=== PATIENT | male | born 1955 | race Caucasian/White ===

== ENCOUNTER 2024-04-23 09:31 | Outpatient (AMB) | payer MEDICARE, SELFPAY ==
--- NOTE | 2024-04-23 09:35 | MHC.PC.OV ---
Vital Signs 04/23/24 09:38 Height 6 ft 2 in Weight 197 lb 2 oz BMI 25.3 BP 128/92 H Blood Pressure Location Lt brachial Position Sitting Pulse 61 Pulse Source Pulse Oximeter Pulse Oximetry (%) 98 Oxygen Delivery Method Room Air Intake Visit Reasons: establish care Financial Rep Required: No Accompanied by: Self / Same As Patient Allergies No Known Allergies [No Known Allergies*] Allergy (Verified 04/23/24 09:47) Medication List - Last Reconciled 04/23/24 by JOSELINE Minor No Known Home Meds Tobacco use date assessed: 04/23/24 Fall risk assessment: No Falls in past year Last assessed Fall Risk: 04/23/24 Dental Screening Dental Screen Date: 04/23/24 Did you have a dental visit in the last 12 months?: No Did you have a dental problem in the last 6 months where you did not have access to dental care?: No Was dental information given to patient?: No HPI establish care HPI Details Patient is a 68-year-old male presenting to establish care Previous PCP: Willy camejo, [address] [place] [address] drive Last visit: been in a while Last PE: same Specialist: orthopedics OBGYN:N/A Past medical history: HTN, Medications: thinks that he use to take lisinopril but cannot remember the dose Family HX: n/a Problem: Elevated BP: 150/96 left arm (recheck bp) walks 5 days week for almost 3 miles a week left knee arthritis: steroid x1,, decrease range of motion, referral to Dr. Matteo Trivedi ([facility]) at [address] [place] [address] Reports that he seems to urinates 2-3 times a night. reports beer 5 times a week, 10 to 12 beers in in setting. [facility] Medical History (Updated 04/27/24 @ 10:22 by JOSELINE Minor) HTN (hypertension) Social History Housing: House Patient Tobacco Use Status: Never used Tobacco e-Cigarette/Vaping Use: Never Used service: No Current occupational status: retired Current occupational exposures/hazards: No Cognitive needs: No Hearing needs: No Vision needs: No Questionnaire PHQ-9 Over the last 2 weeks, how often have you been bothered by any of the following problems? 1. Little interest or pleasure in doing things: not at all 2. Feeling down, depressed, or hopeless: not at all 3. Trouble falling or staying asleep, or sleeping too much: not at all 4. Feeling tired or having little energy: not at all 5. Poor appetite or overeating: not at all 6. Feeling bad about yourself - or that you are a failure or have let yourself or your family down: not at all 7. Trouble concentrating on things, such as reading the newspaper or watching television: not at all 8. Moving or speaking so slowly that other people could have noticed. Or the opposite - being so fidgety or restless that you have been moving around a lot more than usual: not at all 9. Thoughts that you would be better off or of hurting yourself in some way: not at all Total score: 0 Source: Developed by Drs. Jose Abdul, Belle Bloom, Jah Francis and colleagues, with an educational carlos from [employer]. Thrive Questionnaire Date Thrive assessed: 04/23/24 I am a: Patient What is your living situation today?: I have a steady place to live Within the past 12 months, did the food you bought not last and you didn't have the money to get more?: Never true Within the past 12 months, did you worry whether your food would run out before you got money to buy more?: Never true Do you have trouble paying for medicines?: No Do you have trouble getting transportation to medical appointments?: No Do you have trouble paying your heating and electricity bill?: No Do you have trouble taking care of your child, family member or friend?: No Do you have trouble with day-to-day activities such as bathing, preparing meals, shopping, managing finances, etc.?: No Are you currently unemployed and looking for a job?: No Are you interested in more education?: No Please select the resources that you would like help with: None Currently or been in a relationship where the following occur: I choose not to answer THRIVE Score: 0 AUDIT C Alcohol Use Questionnaire (AUDIT-C) 1. How often do you have a drink containing alcohol?: 4 or more times a week 2. How many drinks containing alcohol do you have on a typical day when you are drinking?: 5 or 6 3. How often do you have six or more drinks on one occasion?: Weekly Total Score: 9 Score Reviewed/Action Taken: Yes CORDELIA-7 AMB Questionnaire CORDELIA-7 Date CORDELIA - 7 assessed: 04/23/24 Feeling nervous, anxious, or on edge: 3 = Nearly every day Not being able to stop or control worryin = Not at all Worrying too much about different things: 0 = Not at all Trouble relaxin = Several days Being so restless that it is hard to sit still: 1 = Several days Becoming easily annoyed or irritable: 3 = Nearly every day Feeling afraid as if something awful might happen: 0 = Not at all Total CORDELIA-7 score (0-4 normal; 5-9 mild; 10-14 moderate; 15-21 severe): 8 Source: Developed by Drs. Jose Abdul, Belle Bloom, Jah Francis and colleagues, with an educational carlos from [employer]. CORDELIA-7 Assessment Billing CORDELIA-7 Assessment Tool: CORDELIA-7 Assessment 62703 Review of Systems Const Details: Denies chills, Denies fatigue, Denies fever(s), Denies headache(s) and Denies weakness HEENT Denies change in vision, Denies dizziness, Denies headache(s), Denies hearing loss, Denies nasal congestion, Denies sinus pain, Denies sinus pressure and Denies sore throat Card Denies chest pain, Denies lightheadedness, Denies dyspnea and Denies other (palpitations) Reports a history of high blood pressure Resp Denies cough, Denies dyspnea and Denies wheezing GI Denies abdominal pain, Denies melena, Denies hematochezia, Denies change in bowel habits, Denies dyspepsia and Denies nausea Denies hematuria and Denies dysuria Musc Denies abnormal gait, Denies myalgias, +arthralgias (decrease ROM, reports that he was told that he has arthritis), Denies numbness and Denies tingling Skin/Breast Denies rash, Denies unusual bruising and Denies wounds Neuro Denies abnormal gait, Denies dizziness, Denies headache(s), Denies memory loss, Denies numbness, Denies Sensory deficit (Neuro), Denies tingling and Denies weakness Psych Denies anxiety, Denies depression and Denies memory loss Endo Denies cold intolerance, Denies fatigue, Denies heat intolerance, Denies polydipsia and Denies polyuria Titus/Lymph Denies easy bleeding and Denies easy bruising Aller/Immun Denies wheezing Physical exam (Primary Care) Vital Signs: Last Vital Signs Pulse 61 04/23/24 09:38 BP 128/92 H 04/23/24 09:38 Pulse Ox 98 04/23/24 09:38 Oxygen Delivery Method Room Air 04/23/24 09:38 BMI result Body Mass Index 25.3 Tobacco/Smoking Status: Tobacco use Status Tobacco use date assessed 04/23/24 04/23/24 09:42 Patient Tobacco Use Status Never used Tobacco 04/23/24 09:42 e-Cigarette/Vaping Use Never Used 04/23/24 09:42 PHQ-9: PHQ-9 Score PHQ-9: Total score 0 04/23/24 10:06 Thrive Assessment: Date of Thrive Assessment Date Thrive assessed 04/23/24 04/23/24 09:42 Currently or been in a relationship where the following occur: I choose not to answer Const Other: General: no acute distress, well developed, alert and awake Nutritional Appearance: well nourished Orientation/consciousness: patient oriented x3 HENMT Head: Yes normocephalic and Yes atraumatic Ears: hearing grossly normal bilaterally and TM's normal bilaterally General nose exam: Normal external nose present and Normal nares present Mouth: Normal oral and palatal mucosa present and moist mucous membranes Eyes Pupils: Equal, round and reactive pupils present and Pupil accommodation reflex normal EOM: EOMs intact bilaterally Neck Neck: Yes normal visual inspection, Yes no lymphadenopathy and Yes trachea midline Thyroid: Thyroid normal Carotids: no bruits Chest Chest palpation & inspection: normal inspection of the chest Resp Effort & Inspection: normal respiratory effort Auscultation: clear to auscultation bilaterally Cardio Rate: regular rate Rhythm: regular rhythm Heart sounds: S1 normal heart sound present, S2 normal heart sound present, no gallops, no murmurs and no rubs GI Palpation (GI): No Abdominal aortic bruit present, Soft to palpation, nontender, No hepatosplenomegaly present and No Rebound tenderness present Auscultation: normal bowel sounds General: Yes no CVA tenderness Back/Spine/Pelvis Back: no CVA tenderness Cervical Spine: cervical ROM normal and No Cervical spine tenderness Thoracic/Lumbar Spine: No lumbar tenderness Right knee pain with walking, no tenderness with palpation, no edema or erythema noted and decreased ROM reports hx of arthritis Skin General: warm and dry. Normal skin color. Normal skin turgor Lesions: no lesions Wounds: no wounds Nails: normal Neuro General: patient oriented x3, gait normal Cranial nerves: Yes Equal, round and reactive pupils present Cognition (Neuro): normal cognition Gait exam (Neuro): Normal gait present Extrem General: Yes normal to inspection, No edema and No calf tenderness Psych Appearance: grossly normal Affect: normal affect Attitude: cooperative Thought process: Normal thought process present Coding Level of Care Code New Pt Level 4 (09135) Diagnoses Arthritis of left knee M17.12 Hypertension, unspecified type I10 Hypertension type: unspecified Alcohol dependence with unspecified alcohol-induced disorder F10.29 Substance use status: unspecified alcohol-induced disorder Additional Codes CORDELIA-7 Assessment Billing - CORDELIA-7 Assessment Tool: CORDELIA-7 Assessment 98105 ([id number]) Time Spent (min) 37 Assessment & Plan Assessment & Plan (1) Arthritis of left knee: Code(s): M17.12 - Unilateral primary osteoarthritis, left knee Category: Medical Plan: The patient reports left knee pain and decreased ROM, reports that he has been connected with Orthopedics (Dr. Matteo Wang) at [facility]. He was given 1 steroid injection so far. Reports recommendation for surgery but needs a PCP in order proceed. Referral placed (2) HTN (hypertension): Code(s): I10 - Essential (primary) hypertension Category: Medical Qualifiers: Hypertension type: unspecified Qualified Code(s): I10 - Essential (primary) hypertension Plan: Patient reports a history of hypertension. Reports that he thinks that he used to take lisinopril but does not remember the dose Rechecked blood pressure 150/96, will start the patient on Lisinopril 5 mg daily The patient to return in 2 weeks for blood pressure check and medication adjustment (3) Alcohol dependence: Code(s): F10.20 - Alcohol dependence, uncomplicated Category: Medical Qualifiers: Substance use status: unspecified alcohol-induced disorder Qualified Code(s): F10.29 - Alcohol dependence with unspecified alcohol-induced disorder Plan: Discussed with patient about his high amount of alcohol consumption. The reports that it is just beers and it is not as bad as hard liquor. Encourage cessation or cutting down the amount drinking in one sitting Orders: Orders Complete Blood Count Auto Diff 04/24/24 Z00.00 - Encounter for general adult medical examination without abnormal findings Lipid Panel 04/24/24 Z00.00 - Encounter for general adult medical examination without abnormal findings TSH reflex Free T4 04/24/24 Z00.00 - Encounter for general adult medical examination without abnormal findings Comprehensive [place]. Panel Fast 04/24/24 Z00.00 - Encounter for general adult medical examination without abnormal findings Vitamin D 25-OH Total 04/24/24 Z00. - Encounter for general adult medical examination without abnormal findings UA CC w/rflx Micro + Cult 04/24/24 Z00.00 - Encounter for general adult medical examination without abnormal findings Glucose Fasting 04/24/24 Z00.00 - Encounter for general adult medical examination without abnormal findings PSA,Total (Free>4and<10) 04/24/24 Z00.00 - Encounter for general adult medical examination without abnormal findings ECG 12 lead EKG 04/24/24 M17.12 - Unilateral primary osteoarthritis, left knee Referrals Orthopedics Referral M17.12 - Unilateral primary osteoarthritis, left knee Medications: New lisinopril 5 mg PO DAILY 30 tabs 0RF I10 - Essential (primary) hypertension
[2024-04-23 09:38] VITALS: BP 128/92; PULSE 61; O2SAT 98; BMI 25.3
--- OUTSIDE RECORDS SUMMARY | 2024-04-23 10:48 | XMS_ITS | Encounter Summary ---
Author Organization [facility] Address [address] [place] [address] Care Team Providers Care Medicaid Collection Specialist Name Role Phone Unavailable Primary Care Provider Unavailabl e Reason for Visit * Reason Onset Date Comments Referral 04/02/2024 Encounter Details Date Type Department Care Team (Late st Contact Info) Description 04/02/2024 Telephone Orthopedic Surgery - [place] [address] [facility] [address] [place] [address] Matteo Trivedi MD [address] [facility] [address] [address] Referral Social History Tobacco Use Types Packs/Day Years Used Date Smoking Tobacco: Never Assessed Sex and Gender Information Value Date Recorded Sex Assigned at Not on file Legal Sex Male 10:30 AM EST Gender Identity Not on file Sexual Orientation Not on file documented as of this encounter Progress Notes * Ping Tobar - 04/02/2024 12:[address] Trivedi, patient needs to get a primary care doctor before booking this appointment. Pt wifestated pt has not been seen by a PCP since 2019. I relayed this information to the pt's and stated they could bring in those records but the pt would need to find a new PCP before being seen by Dr. Trivedi. Pt was in agreement. * Ping Tobar - 04/02/2024 10:30 AM EST Will do. Just called pt and lvm for last office note. * Ping Tobar - 04/02/2024 10:[address] EST [address] Trivedi, Patient is being referred for unilateral primary osteoarthritis, left knee by Dr. Rivas. Please review office notes and let me know if I can book appt with you. Please advise. Thank you. documented in this encounter Plan of Treatment Not on file documented as of this encounter Visit Diagnoses Not on filedocumented in this encounter
--- OUTSIDE RECORDS SUMMARY | 2024-04-23 10:48 | XMS_ITS | Clinical Summary ---
Author Organization [facility] Address [address] [place] [address] Phone Care Team Providers Care Bolt Maker Name Role Phone Unavailable Primary Care Provider Unavailabl e Encounters Date Type Department Care Team Description 04/02/2024 Telephone Orthopedic Surgery - [place] [address] [facility] [address] [place] [address] Matteo Trivedi MD Referral 03/20/2024 10:33 AM EST - 03/20/2024 11:59 PM EST Hospital Encounter [facility] Ortho Xray [address] [place] [address] Pain Discharge Disposition: Home or Self Care from Last 3 Months Social History Tobacco Use Types Packs/Day Years Used Date Smoking Tobacco: Never Assessed Sex and Gender Information Value Date Recorded Sex Assigned at Not on file Legal Sex Male 10:30 AM EST Gender Identity Not on file Sexual Orientation Not on file Plan of Treatment Health Maintenance Due Date Last Done Comments DTaP,Tdap,and Td Vaccines (1 - Tdap) 1973 Pneumococcal Vaccine: 50+ Ye ars (1 of 1 - PCV) 2004 Zoster Vaccines (1 of 2) 2004 COVID-19 Vaccine ( - 2023-2 5 season) 2023 Influenza Vaccine (#1) 2023 Abdominal Aortic Aneurysm (A AA) Screen 03/20/2024 Cholesterol Screening (Lipid Panel) 03/20/2024 Colorectal Cancer Screening: Colonoscopy 03/20/2024 Depression Screening 03/20/2024 Falls Risk Assessment 03/20/2024 Hepatitis C Screening 03/20/2024 Social Influencers of Health Screening 03/20/2024 RSV Immunization Patients 60 + Years Old (1 - 1-dose 75+ series) 2029 HIB Vaccines Aged Out No longer eligi ble based on patient's age to complete this topic HPV Vaccines Aged Out No longer eligi ble based on patient's age to complete this topic Hepatitis A Vaccines Aged Out No long er eligible based on patient's age to complete this topic Hepatitis B Vaccines Aged Out No long er eligible based on patient's age to complete this topic IPV Vaccines Aged Out No longer eligi ble based on patient's age to complete this topic MMR Vaccines Aged Out No longer eligi ble based on patient's age to complete this topic Meningococcal ACWY Vaccine Aged Out N o longer eligible based on patient's age to complete this topic Meningococcal B Vacine Aged Out No lo nger eligible based on patient's age to complete this topic RSV Immunization Patients Un logan 20 months Aged Out No longer eligible b ased on patient's age to complete this topic Varicella Vaccines Aged Out No longer eligible based on patient's age to complete this topic Procedures Procedure Name Priority Date/Time Associated Diagnosis Comments XR KNEE 1-2 VIEWS BILAT Routine 03/20/2024 10:41 AM EST Pain from Last 3 Months Results * XR Knee 1-2 Views bilat (03/20/2024 10:41 AM EST) Narrative RIS PACS/VR - 03/20/2024 10:41 AM EST This order has been auto-finalized and does not contain a result. us Jj Nelson MD IMG XR PROCEDURES Final Result RIS PACS/VR from Last 3 Months
== END 2024-04-23 10:17 | disposition home or self-care (01) ==
DX: M17.12 Unilateral primary osteoarthritis, left knee (principal); I10 Essential (primary) hypertension; F10.29 Alcohol dependence with unspecified alcohol-induced disorder

== ENCOUNTER → 2024-04-23 09:31 | Outpatient (BNVA) | payer MEDICARE, SELFPAY | DX: M17.12 Unilateral primary osteoarthritis, left knee (principal); I10 Essential (primary) hypertension; F10.29 Alcohol dependence with unspecified alcohol-induced disorder | CPT/HCPCS: 96127; 99202 ==

== ENCOUNTER 2024-04-24 06:35 | Outpatient (REF) | payer MEDICARE, SELFPAY ==
--- NOTE | 2024-04-24 06:53 | ECG_ITS ---
Test Reason : M17.12 Blood Pressure : */* mmHG Vent. Rate : 91 BPM Atrial Rate : 91 BPM P-R Int : 142 ms QRS Dur : 90 ms QT Int : 380 ms P-R-T Axes : 85 -23 54 degrees QTcB Int : 467 ms Normal sinus rhythm Right atrial enlargement Cannot rule out Inferior infarct , age undetermined Abnormal ECG When compared with ECG of 22-Jun-2017 10:16, Minimal criteria for Inferior infarct are now Present Non-specific change in ST segment in Inferior leads Referred By: Jason Mcfarlane Electronically Signed By: ELLEN GUERRERO MD
[2024-04-24 06:55] LABS: MANUAL DIFF FLAG NO
[2024-04-24 07:27] LABS: Appearance Urine Clear; Color Urine Yellow; Glucose Urine UA Negative (Negative); Leukocyte Esterase Urine Negative (Negative); Nitrite Urine Negative (Negative); PH 5.5 (5.0-9.0); Specific Gravity - Urine 1.015 (1.005-1.025); Urine Blood Negative (Negative); Urine Ketones Negative (Negative); Urine Protein Negative (Neg-Trace)
[2024-04-24 07:27] LABS: Basophils Percent Auto 0.4 % (0-2); Eosinophils Absolute Auto 0.1 X10*3/uL (0.0-0.4); Eosinophils Percent Auto 2.5 % (0-4); Hematocrit 46.3 % (42.0-52.0); Hemoglobin 16.4 g/dl (14.0-18.0); Imm Gran Abs Auto 0.02 X10*3/uL (0.00-0.03); Imm Gran Pct Auto 0.4 % (0.0-0.4); Lymphocytes Absolute Auto 2.1 X10*3/uL (1.2-4.9); Lymphocytes Percent Auto 40.7 % (20-40); Mean Corpuscular HGB Conc 35.4 g/dl (31.0-36.0); Mean Corpuscular Hemoglobin 32.1 pg (27.0-33.0); Mean Corpuscular Volume 90.6 fL (80.0-98.0); Monocytes Absolute Auto 0.5 X10*3/uL (0.1-1.2); Monocytes Percent Auto 10.4 % (2-11); Neutrophils Absolute Auto 2.4 x10*3/uL (2.0-8.3); Neutrophils Percent Auto 45.6 % (45-73); Platelet Count 194 X10*3/uL (160-400); Red Blood Count 5.11 X10*6/uL (4.60-5.80); Red Cell Distribution Width 12.2 % (11.0-16.0); White Blood Count 5.2 X10*3/uL (4.8-10.8)
[2024-04-24 08:07] LABS: Alanine Aminotransferase 31 U/L (0-40); Albumin Level 4.3 g/dL (3.5-5.0); Alkaline Phosphatase 70 U/L (39-117); Anion Gap 13 (12-20); Aspartate Amino Transferase 30 U/L (5-37); Bilirubin Total 1.5 mg/dL (0.0-1.0); Blood Urea Nitrogen 10 mg/dL (9-16); Calcium 9.3 mg/dL (8.4-10.2); Carbon Dioxide 25 mmol/L (22-29); Chloride 105 mmol/L (96-108); Cholesterol 221 mg/dL (<200); Estimated Glomerular Filt Rate > 60; Glucose Fasting 110 mg/dL (60-99); HDL Cholesterol 57 mg/dL (>40); LDL Cholesterol Calculated 146 mg/dL (<100); Potassium 4.3 mmol/L (3.3-5.1); Sodium 139 mmol/L (135-145); Total Protein 7.8 g/dL (6.5-8.0); Triglycerides 92 mg/dL (<150)
[2024-04-24 08:28] LABS: TSH reflex Free T4 2.91 uIU/mL (0.32-4.0); Vitamin D 25-OH Total 31.6 ng/mL (>30)
== END 2024-04-24 06:36 | disposition home or self-care (01) ==
LOC: HO.LAB 06:35
DX: Z00.00 Encounter for general adult medical examination without abnormal findings (principal); M17.12 Unilateral primary osteoarthritis, left knee; Z12.5 Encounter for screening for malignant neoplasm of prostate; Z13.6 Encounter for screening for cardiovascular disorders
CPT/HCPCS: 36415; 80053; 80061; 81003; 82306; 84153; 84443; 85025; 93005

== ENCOUNTER → 2024-04-24 06:53 | Outpatient (BNV) | payer MEDICARE, SELFPAY | PROVIDERS: Visit Provider Internal Medicine Cardiovascular Disease | DX: I51.7 Cardiomegaly (principal) | CPT/HCPCS: 93010 ==

== ENCOUNTER 2024-05-07 09:29 | Outpatient (AMB) | payer MEDICARE, SELFPAY ==
[2024-05-07 09:31] VITALS: BP 152/92; PULSE 65; TEMP 37.2; O2SAT 99; BMI 25.5
--- NOTE | 2024-05-07 09:31 | MHC.PC.OV ---
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 Required: No Accompanied by: Self / Same As Patient Allergies No Known Allergies [No Known Allergies*] Allergy (Verified 05/07/24 09:47) Medication List - Last Reconciled 05/07/24 by JOSELINE Minor lisinopril 5 mg PO DAILY Tobacco use date assessed: 05/07/24 Fall risk assessment: No Falls in past year Last assessed Fall Risk: 05/07/24 Dental Screening Dental Screen Date: 05/07/24 Did you have a dental visit in the last 12 months?: No Did you have a dental problem in the last 6 months where you did not have access to dental care?: No HPI pe HPI Details Patient is a 68-year-old male presenting for annual physical Dentist: not in a while-encourage patient to make an appointment Eye: not in a while-same as above Snellen: Right: Left: Corrected vision: STI screening: Colonoscopy:Reports that her insurance did not cover it and it was cancel Pap Smer:n/a PHQ-9: Flu: not this season COVID:x2 Tdap: up to date Diet: Regular Exercise:not currently due to left knee pain Elevated BP: 150/96 left arm (recheck bp) walks 5 days week for almost 3 miles a week left knee arthritis: steroid x1,, decrease range of motion, referral to Dr. Matteo Trivedi ([facility]) at [address] [place] [address], next sunday at 930-will be his first visit Reports urinates 2-3 times a night. reports beer 5 times a week, 10 to 12 beers in one setting. Discussed with patient about cutting down on the amount of beers he is drinking Lightheaded when standing up from bending: will do an echocardiogram 148/82 left arm RIGHT UPPER BACK: MOLE RIGHT BRIDGE OF NOSE MOLE-DERMATOLOGY REFERRAL [facility] Medical History (Updated 05/18/24 @ 15:35 by JOSELINE Minor) HTN (hypertension) Social History Housing: House Patient Tobacco Use Status: Never used Tobacco e-Cigarette/Vaping Use: Never Used Substance Use Type: Marijuana service: No Current occupational status: retired Current occupational exposures/hazards: No Cognitive needs: No Hearing needs: No Vision needs: No Questionnaire PHQ-9 Over the last 2 weeks, how often have you been bothered by any of the following problems? 1. Little interest or pleasure in doing things: not at all 2. Feeling down, depressed, or hopeless: not at all 3. Trouble falling or staying asleep, or sleeping too much: not at all 4. Feeling tired or having little energy: not at all 5. Poor appetite or overeating: not at all 6. Feeling bad about yourself - or that you are a failure or have let yourself or your family down: not at all 7. Trouble concentrating on things, such as reading the newspaper or watching television: not at all 8. Moving or speaking so slowly that other people could have noticed. Or the opposite - being so fidgety or restless that you have been moving around a lot more than usual: not at all 9. Thoughts that you would be better off or of hurting yourself in some way: not at all Total score: 0 Depression Screening Interpretation: Negative Depression Screening Done: Yes Source: Developed by Drs. Jose Abdul, Belle Bloom, Jah Francis and colleagues, with an educational carlos from [employer]. Thrive Questionnaire Date Thrive assessed: 05/07/24 I am a: Patient What is your living situation today?: I have a steady place to live Within the past 12 months, did the food you bought not last and you didn't have the money to get more?: Never true Within the past 12 months, did you worry whether your food would run out before you got money to buy more?: Never true Do you have trouble paying for medicines?: No Do you have trouble getting transportation to medical appointments?: No Do you have trouble paying your heating and electricity bill?: No Do you have trouble taking care of your child, family member or friend?: No Do you have trouble with day-to-day activities such as bathing, preparing meals, shopping, managing finances, etc.?: No Are you currently unemployed and looking for a job?: No Are you interested in more education?: No Please select the resources that you would like help with: None Currently or been in a relationship where the following occur: I choose not to answer THRIVE Score: 0 AUDIT C Alcohol Use Questionnaire (AUDIT-C) 1. How often do you have a drink containing alcohol?: 4 or more times a week 2. How many drinks containing alcohol do you have on a typical day when you are drinking?: 5 or 6 3. How often do you have six or more drinks on one occasion?: Weekly Total Score: 9 Score Reviewed/Action Taken: Yes CORDELIA-7 AMB Questionnaire CORDELIA-7 Date CORDELIA - 7 assessed: 04/23/24 Feeling nervous, anxious, or on edge: 2 = More than half the days Not being able to stop or control worryin = Not at all Worrying too much about different things: 0 = Not at all Trouble relaxin = Several days Being so restless that it is hard to sit still: 1 = Several days Becoming easily annoyed or irritable: 3 = Nearly every day Feeling afraid as if something awful might happen: 0 = Not at all Total CORDELIA-7 score (0-4 normal; 5-9 mild; 10-14 moderate; 15-21 severe): 7 Source: Developed by Drs. Jose Abdul, Belle Bloom, Jah Francis and colleagues, with an educational carlos from [employer]. Review of Systems Const Denies headache(s) Eyes Denies loss of vision ENT Denies vertigo, Denies dizziness, Denies headache(s) and Denies sore throat Card Denies chest pain, Denies leg edema and Reports lightheadedness (when standing up from a bending position) Resp Denies cough, Denies hemoptysis and Denies wheezing GI Denies abdominal pain, Denies melena, Denies constipation, Denies diarrhea and Denies vomiting Denies dysuria, Denies urinary frequency and Denies urinary urgency Musc Reports arthralgias (left knee pain), Denies joint swelling, Denies numbness and Denies tingling Neuro Denies Abnormal speech present, Denies behavioral changes, Denies vertigo, Denies dizziness, Denies headache(s), Denies loss of vision, Denies memory loss, Denies numbness and Denies tingling Psych Denies anxiety, Denies behavioral changes, Denies depression, Denies memory loss and Denies panic attacks Titus/Lymph Denies easy bleeding and Denies easy bruising Aller/Immun Denies wheezing Physical exam (Primary Care) Vital Signs: Last Vital Signs Temp 98.9 F 05/07/24 09:31 Pulse 65 05/07/24 09:31 BP 152/92 H 05/07/24 09:31 Pulse Ox 99 05/07/24 09:31 Oxygen Delivery Method Room Air 05/07/24 09:31 BMI result Body Mass Index 25.5 Tobacco/Smoking Status: Tobacco use Status Tobacco use date assessed 05/07/24 05/07/24 09:33 Patient Tobacco Use Status Never used Tobacco 05/07/24 09:38 e-Cigarette/Vaping Use Never Used 05/07/24 09:38 PHQ-9: PHQ-9 Score PHQ-9: Total score 0 05/07/24 09:45 Depression Screening Interpretation: Negative Thrive Assessment: Date of Thrive Assessment Date Thrive assessed 05/07/24 05/07/24 09:42 Currently or been in a relationship where the following occur: I choose not to answer Const General: healthy appearing, no acute distress, alert and awake Nutritional Appearance: well nourished Orientation/consciousness: oriented to person, oriented to place and oriented to time HENMT Ears: TM's normal bilaterally General nose exam: Normal nasal mucous membranes and turbinates present Eyes Conjunctivae: conjunctivae normal Sclerae: sclerae normal Pupils: Equal, round and reactive pupils present Neck Neck: Yes no lymphadenopathy and Yes no JVD Thyroid: Thyroid normal Carotids: no bruits Resp Effort & Inspection: normal respiratory effort and not tachypneic Auscultation: no crackles, no rales, no rhonchi and no wheezes Cardio Rate: regular rate Rhythm: regular rhythm Heart sounds: no murmurs and normal S1 and S2 GI Palpation (GI): Soft to palpation, nontender, no hepatomegaly and no splenomegaly Auscultation: normal bowel sounds Skin General skin exam: no rashes or lesions noted and dry skin Neuro General: oriented to person, oriented to place and oriented to time Cranial nerves: Yes Equal, round and reactive pupils present Speech: No Abnormal speech present Gait exam (Neuro): Normal gait present Motor exam (neuro): no tremor noted Extrem Right upper extremity: full ROM Left upper extremity: full ROM Right lower extremity: full ROM; no edema Left lower extremity: full ROM and knee Details: abnormal ROM; no tenderness and no swelling; no edema Psych Mental Status: mental status grossly normal Speech and movement: Normal speech and movement present Affect: normal affect Attitude: cooperative Thought process: Normal thought process present Results Reviewed Results Reviewed: Laboratory Tests 04/24/24 04/24/24 06:50 06:54 WBC 5.2 RBC 5.11 Hgb 16.4 Hct 46.3 Plt Count 194 Sodium 139 Potassium 4.3 Chloride 105 Carbon Dioxide 25 BUN 10 Creatinine 1.03 Estimated GFR > 60 Fasting Glucose 110 H Total Bilirubin 1.5 H AST 30 ALT 31 Alkaline Phosphatase 70 Triglycerides 92 Cholesterol 221 H LDL Cholesterol, Calc 146 H HDL Cholesterol 57 Total PSA 0.80 25-OH Vitamin D Total 31.6 TSH 2.91 Urine Color Yellow Urine Appearance Clear Urine pH 5.5 Ur Specific Gustine 1.015 Urine Protein Negative Urine Glucose (UA) Negative Urine Ketones Negative Urine Blood Negative Urine Nitrite Negative Ur Leukocyte Esterase Negative Coding Level of Care Code Est Pt Prev Care >65y([id number]) Diagnoses Annual physical exam Z00.00 Pure hypercholesterolemia with target low density lipoprotein (LDL) cholesterol less than 130 mg/dL E78.00 Alcohol dependence with unspecified alcohol-induced disorder F10.29 Substance use status: unspecified alcohol-induced disorder Hypertension, unspecified type I10 Hypertension type: unspecified Arthritis of left knee M17.12 Right atrial enlargement I51.7 Time Spent (min) 39 Assessment & Plan Assessment & Plan (1) Annual physical exam: Code(s): Z00.00 - Encounter for general adult medical examination without abnormal findings Category: Medical Plan: Preventative guidelines and recent labs reviewed with the patient. The patient reports that he was supposed to have a colonoscopy but his insurance did not cover this and it was not done. The patient is not sure about getting it right now. Will revisit this in the future. (2) Pure hypercholesterolemia with target low density lipoprotein (LDL) cholesterol less than 130 mg/dL: Code(s): E78.00 - Pure hypercholesterolemia, unspecified Category: Medical Plan: T-chol 221, LDL 146 Reinforced low cholesterol diet and activity as tolerated Start atorvastatin 10 mg at bedtime will recheck lipid panel in 3 months (3) Alcohol dependence: Code(s): F10.20 - Alcohol dependence, uncomplicated Category: Medical Qualifiers: Substance use status: unspecified alcohol-induced disorder Qualified Code(s): F10.29 - Alcohol dependence with unspecified alcohol-induced disorder Plan: Encouraged cutting down on the amount of alcohol beverages consuming (4) HTN (hypertension): Code(s): I10 - Essential (primary) hypertension Category: Medical Qualifiers: Hypertension type: unspecified Qualified Code(s): I10 - Essential (primary) hypertension Plan: Reinforced low salt diet Increased lisinopril to 10 mg daily EKG showed sinus rhythm with enlargement of right atrial. Will order and echocardiogram (5) Arthritis of left knee: Code(s): M17.12 - Unilateral primary osteoarthritis, left knee Category: Medical Plan: The patient reports left knee pain and decreased ROM, reports that he has been connected with Orthopedics (Dr. Matteo Wang) at [facility]. He was given 1 steroid injection so far. Reports recommendation for surgery but needs a PCP in order proceed. Referral placed on previous visit. Follow up with orthopedics as scheduled (6) Right atrial enlargement: Code(s): I51.7 - Cardiomegaly Category: Medical Plan: echcardiogram ordered Plan The patient to follow up in 3 months Orders: Orders Lipid Panel 3 Months E78.00 - Pure hypercholesterolemia, unspecified, F10.29 - Alcohol dependence with unspecified alcohol-induced disorder, I10 - Essential (primary) hypertension UA CC w/rflx Micro + Cult 3 Months E78.00 - Pure hypercholesterolemia, unspecified, F10.29 - Alcohol dependence with unspecified alcohol-induced disorder, I10 - Essential (primary) hypertension TSH reflex Free T4 3 Months E78.00 - Pure hypercholesterolemia, unspecified, F10.29 - Alcohol dependence with unspecified alcohol-induced disorder, I10 - Essential (primary) hypertension Comprehensive [place]. Panel Fast 3 Months E78.00 - Pure hypercholesterolemia, unspecified, F10.29 - Alcohol dependence with unspecified alcohol-induced disorder, I10 - Essential (primary) hypertension Complete Blood Count Auto Diff 3 Months E78.00 - Pure hypercholesterolemia, unspecified, F10.29 - Alcohol dependence with unspecified alcohol-induced disorder, I10 - Essential (primary) hypertension Glucose Fasting 3 Months E78.00 - Pure hypercholesterolemia, unspecified, F10.29 - Alcohol dependence with unspecified alcohol-induced disorder, I10 - Essential (primary) hypertension Hemoglobin A1c 3 Months E78.00 - Pure hypercholesterolemia, unspecified, F10.29 - Alcohol dependence with unspecified alcohol-induced disorder, I10 - Essential (primary) hypertension Medications: New atorvastatin 10 mg PO BEDTIME 90 tabs 1RF 90 days E78.00 - Pure hypercholesterolemia, unspecified lisinopril 10 mg PO DAILY 30 tabs 3RF I10 - Essential (primary) hypertension Discontinued lisinopril Discontinued Reason: Duplicate 5 mg PO DAILY 30 tabs 0RF I10 - Essential (primary) hypertension
== END 2024-05-07 10:22 | disposition home or self-care (01) ==
LOC: HO.HMCH 09:30
DX: Z00.00 Encounter for general adult medical examination without abnormal findings (principal); E78.00 Pure hypercholesterolemia, unspecified; F10.29 Alcohol dependence with unspecified alcohol-induced disorder; I10 Essential (primary) hypertension; M17.12 Unilateral primary osteoarthritis, left knee; I51.7 Cardiomegaly

== ENCOUNTER → 2024-05-07 09:29 | Outpatient (BNVA) | payer MEDICARE, SELFPAY | DX: Z00.00 Encounter for general adult medical examination without abnormal findings (principal); E78.00 Pure hypercholesterolemia, unspecified; F10.29 Alcohol dependence with unspecified alcohol-induced disorder; I10 Essential (primary) hypertension; M17.12 Unilateral primary osteoarthritis, left knee; I51.7 Cardiomegaly | CPT/HCPCS: 99397 ==

== ENCOUNTER 2024-05-27 10:53 | Outpatient (AMB) | payer MEDICARE, SELFPAY ==
[2024-05-27 10:59] VITALS: BP 152/84; PULSE 78; RESP 20; TEMP 36.3; O2SAT 98; BMI 25.8
--- NOTE | 2024-05-27 10:59 | A.OFFPC_ITS ---
Vital Signs 05/27/24 10:59 05/27/24 11:42 Height 6 ft 2 in Weight 200 lb 9.6 oz BMI 25.8 BP 152/84 H 144/80 H Blood Pressure Location Lt brachial Lt brachial Position Sitting Respiration 20 Pulse 78 Pulse Source Pulse Oximeter Temp 97.3 F Temp Source Oral Pulse Oximetry (%) 98 Oxygen Delivery Method Room Air Intake Visit Reasons: Pre-op for left knee replacement Intake Note: Patient is here for a Pre-op for Lt knee replacement scheduled with Dr. Matteo Daniels at [facility] in [place], [place] on 07/07/2024. Cost Estimator Required: No Accompanied by: Self / Same As Patient Allergies No Known Allergies [No Known Allergies*] Allergy (Verified 05/27/24 11:30) Medication List - Last Reconciled 05/27/24 by JOSELINE Minor atorvastatin 10 mg PO BEDTIME 90 days lisinopril 10 mg PO DAILY Tobacco use date assessed: 05/27/24 Fall risk assessment: No Falls in past year Last assessed Fall Risk: 05/27/24 Dental Screening Dental Screen Date: 05/27/24 Did you have a dental visit in the last 12 months?: No Did you have a dental problem in the last 6 months where you did not have access to dental care?: No Was dental information given to patient?: No HPI Pre-op for left knee replacement HPI Details The patient is a 68-year-old male who was presenting for preop clearance for left knee replacement Surgery: Left knee replacement. The patient has a history of osteoarthritis of the left knee for which he received steroid injection x1. The patient continued to have decreased range of motion and pain. Date: 07/07/2024 Surgery/location: Dr. Matteo Trivedi at [facility] Anesthesia: General. Patient denies any history of issues with anesthesia The patient denies any history of perioperative hypothermia or blood clotting disorder. The patient is not on any anticoagulation or disease modifying drugs. Medical history significant for hypertension, alcohol dependence, hypercholesterolemia. The patient had blood work done on 04/24/2024. Total cholesterol slightly elevated at 221 and LDL elevated at 146. Patient was started on atorvastatin 10 mg at bedtime. Patient had an EKG done on 04/24/2024 that showed atrial enlargement. The patient was referred to Cardiology. Per patient, his legal activity adjudicator reports that he is not concerned about his surgery; he is more concerned about his rehabilitation that will put added stress on his heart. The patient has an echocardiogram scheduled for 06/05/2024. Per patient, the legal activity adjudicator we will make a final decision after his echo. Patient also has an appointment with his dentist as part of the request from his surgeon. HTN: The patient was started on lisinopril 10 mg for elevated blood pressure. Patient reports that when he went to his legal activity adjudicator he did not drink any coffee. His initial blood pressure was slightly elevated and after the legal activity adjudicator repeated his blood pressure it was normal with a systolic in the 120s. Blood pressure in office is slightly elevated today, the patient admitted to drinking 2 small cups of coffee this morning prior to appointment. Discussed with the patient about cutting down on his coffee intake. Reinforced low-sodium diet and adequate fluid hydration. The patient had reported episodes of lightheadedness after bending down and standing up on previous visit. Poor fluid hydration was suspected due to the patient own admission of not drinking enough fluids, but drinking a lot of coffee. Patient had increase his fluid intake since his last visit. He verbalizes a decreased in the feeling of lightheadedness on the days that he drank more fluids. The patient denies shortness of breath, chest pain, heart palpitation or dizziness Denies abdominal pain or change in bowel habits Discussed with the patient that his previous labs are not concerning, but he should find out from his surgeon if he wants more labs closer to his surgery date. The patient will get this information and contact the office with this. [facility] Medical History (Updated 05/31/24 @ 20:57 by JOSELINE Minor) HTN (hypertension) Surgical History Hx of hernia repair Family History Mother Alzheimer dementia Father Heart attack Daughter No problems noted. Daughter No problems noted. Social History Housing: House Patient Tobacco Use Status: Never used Tobacco e-Cigarette/Vaping Use: Never Used Substance Use Type: Marijuana service: No Current occupational status: retired Current occupational exposures/hazards: No Cognitive needs: No Hearing needs: No Vision needs: No Questionnaire PHQ-9 Over the last 2 weeks, how often have you been bothered by any of the following problems? 1. Little interest or pleasure in doing things: not at all 2. Feeling down, depressed, or hopeless: not at all 3. Trouble falling or staying asleep, or sleeping too much: not at all 4. Feeling tired or having little energy: not at all 5. Poor appetite or overeating: not at all 6. Feeling bad about yourself - or that you are a failure or have let yourself or your family down: not at all 7. Trouble concentrating on things, such as reading the newspaper or watching television: not at all 8. Moving or speaking so slowly that other people could have noticed. Or the opposite - being so fidgety or restless that you have been moving around a lot more than usual: not at all 9. Thoughts that you would be better off or of hurting yourself in some way: not at all Total score: 0 Depression Screening Interpretation: Negative Depression Screening Done: Yes Source: Developed by Drs. Jose Abdul, Belle Bloom, Jah Francis and colleagues, with an educational carlos from [employer]. Thrive Questionnaire Date Thrive assessed: 05/27/24 I am a: Patient What is your living situation today?: I have a steady place to live Within the past 12 months, did the food you bought not last and you didn't have the money to get more?: Never true Within the past 12 months, did you worry whether your food would run out before you got money to buy more?: Never true Do you have trouble paying for medicines?: No Do you have trouble getting transportation to medical appointments?: No Do you have trouble paying your heating and electricity bill?: No Do you have trouble taking care of your child, family member or friend?: No Do you have trouble with day-to-day activities such as bathing, preparing meals, shopping, managing finances, etc.?: No Are you currently unemployed and looking for a job?: No Are you interested in more education?: No Please select the resources that you would like help with: None Currently or been in a relationship where the following occur: No concerns reported THRIVE Score: 0 AUDIT C Alcohol Use Questionnaire (AUDIT-C) 1. How often do you have a drink containing alcohol?: 4 or more times a week 2. How many drinks containing alcohol do you have on a typical day when you are drinking?: 5 or 6 3. How often do you have six or more drinks on one occasion?: Weekly Total Score: 9 Score Reviewed/Action Taken: Yes CORDELIA-7 AMB Questionnaire CORDELIA-7 Date CORDELIA - 7 assessed: 05/27/24 Feeling nervous, anxious, or on edge: 1 = Several days Not being able to stop or control worryin = Not at all Worrying too much about different things: 0 = Not at all Trouble relaxin = Not at all Being so restless that it is hard to sit still: 0 = Not at all Becoming easily annoyed or irritable: 0 = Not at all Feeling afraid as if something awful might happen: 0 = Not at all Total CORDELIA-7 score (0-4 normal; 5-9 mild; 10-14 moderate; 15-21 severe): 1 Source: Developed by Drs. Jose Abdul, Belle Bloom, Jah Francis and colleagues, with an educational carlos from [employer]. Review of Systems Const Denies headache(s) Eyes Denies loss of vision ENT Denies vertigo, Denies dizziness, Denies headache(s) and Denies sore throat Card Denies chest pain, Denies leg edema and Denies lightheadedness Resp Denies cough, Denies hemoptysis and Denies wheezing GI Denies abdominal pain, Denies melena, Denies constipation, Denies diarrhea and Denies vomiting Denies dysuria, Denies urinary frequency and Denies urinary urgency Musc Reports arthralgias (Left knee), Denies joint swelling, Denies numbness and Denies tingling Neuro Denies Abnormal speech present, Denies behavioral changes, Denies vertigo, Denies dizziness, Denies headache(s), Denies loss of vision, Denies memory loss, Denies numbness and Denies tingling Psych Denies anxiety, Denies behavioral changes, Denies depression, Denies memory loss and Denies panic attacks Titus/Lymph Denies easy bleeding and Denies easy bruising Aller/Immun Denies wheezing Physical exam (Primary Care) Vital Signs: Last Vital Signs Temp 97.3 F 05/27/24 10:59 Pulse 78 05/27/24 10:59 Resp 20 05/27/24 10:59 BP 144/80 H 05/27/24 11:42 Pulse Ox 98 05/27/24 10:59 Oxygen Delivery Method Room Air 05/27/24 10:59 BMI result Body Mass Index 25.8 Tobacco/Smoking Status: Tobacco use Status Tobacco use date assessed 05/27/24 05/27/24 11:17 Patient Tobacco Use Status Never used Tobacco 05/27/24 11:17 e-Cigarette/Vaping Use Never Used 05/27/24 11:17 PHQ-9: PHQ-9 Score PHQ-9: Total score 0 05/31/24 17:27 Depression Screening Interpretation: Negative Thrive Assessment: Date of Thrive Assessment Date Thrive assessed 04/16/24 05/27/24 11:55 Currently or been in a relationship where the following occur: No concerns reported Const General: healthy appearing, no acute distress, alert and awake Nutritional Appearance: well nourished Orientation/consciousness: oriented to person, oriented to place and oriented to time HENMT Ears: external ears normal General nose exam: Normal external nose present Eyes Conjunctivae: conjunctivae normal Sclerae: sclerae normal Pupils: Equal, round and reactive pupils present Neck Neck: Yes no lymphadenopathy and Yes no JVD Thyroid: Thyroid normal Carotids: no bruits Resp Effort & Inspection: normal respiratory effort and not tachypneic Auscultation: no crackles, no rales, no rhonchi and no wheezes Cardio Rate: regular rate Rhythm: regular rhythm Heart sounds: no murmurs and normal S1 and S2 GI Palpation (GI): Soft to palpation, nontender, no hepatomegaly and no splenomegaly Auscultation: normal bowel sounds Back/Spine/Pelvis Cervical Spine: No Cervical spine tenderness Thoracic/Lumbar Spine: No thoracic spinal tenderness and No lumbar spinal tenderness Skin General skin exam: no rashes or lesions noted and dry skin Neuro General: oriented to person, oriented to place and oriented to time Cranial nerves: Yes Equal, round and reactive pupils present Speech: No Abnormal speech present Gait exam (Neuro): Normal gait present Motor exam (neuro): no tremor noted Extrem Right upper extremity: full ROM Left upper extremity: full ROM Right lower extremity: full ROM; no edema Left lower extremity: full ROM and knee Details: abnormal ROM; no tenderness; no edema Psych Mental Status: mental status grossly normal Speech and movement: Normal speech and movement present Affect: normal affect Attitude: cooperative Thought process: Normal thought process present Results Reviewed Results Reviewed: Laboratory Tests 04/24/24 04/24/24 06:50 06:54 WBC 5.2 RBC 5.11 Hgb 16.4 Hct 46.3 MCV 90.6 RDW 12.2 Plt Count 194 Sodium 139 Potassium 4.3 Chloride 105 Carbon Dioxide 25 Anion Gap 13 BUN 10 Creatinine 1.03 Estimated GFR > 60 Fasting Glucose 110 H Calcium 9.3 Total Bilirubin 1.5 H AST 30 ALT 31 Alkaline Phosphatase 70 Total Protein 7.8 Albumin 4.3 Triglycerides 92 Cholesterol 221 H LDL Cholesterol, Calc 146 H HDL Cholesterol 57 Total PSA 0.80 25-OH Vitamin D Total 31.6 TSH 2.91 Urine Color Yellow Urine Appearance Clear Urine pH 5.5 Ur Specific [place] 1.015 Urine Protein Negative Urine Glucose (UA) Negative Urine Ketones Negative Urine Blood Negative Urine Nitrite Negative Ur Leukocyte Esterase Negative Coding Level of Care Code Est Pt Level 4 (17657) Diagnoses Preoperative clearance Z01.818 Arthritis of left knee M17.12 Right atrial enlargement I51.7 Hypertension, unspecified type I10 Hypertension type: unspecified Pure hypercholesterolemia with target low density lipoprotein (LDL) cholesterol less than 130 mg/dL E78.00 Time Spent (min) 41 Assessment & Plan Assessment & Plan (1) Preoperative clearance: Code(s): Z01.818 - Encounter for other preprocedural examination Category: Medical Plan: Upon clearance from cardiology, the patient is at acceptable risk for proposed surgery. Reviewed with the patient that no surgery is completely free of risk and that this examination is to assist the surgeon in reviewing informed consent . The patient has recent labs done, discussed with the patient that if his surgeon wants labs closer to his surgery, he should contact the office for these orders to be placed. (2) Arthritis of left knee: Code(s): M17.12 - Unilateral primary osteoarthritis, left knee Category: Medical Plan: History of left knee arthritis status post steroid injections x1. Patient continues to have decreased range of motion and pain. Plans for left knee repl acement with Dr. Matteo Trivedi at [facility]. July 07, 2024 (3) Right atrial enlargement: Code(s): I51.7 - Cardiomegaly Category: Medical Plan: EKG done showed right atrial enlargement. Patient was evaluated by Cardiology, per patient, his legal activity adjudicator explained that he has a small tear in the right atrial. Per patient, his legal activity adjudicator is not worried about to surgery but he is more worried about rehabilitation after the procedure. The patient has an echo pending on 06/05/2024. According to the patient, cardiology we will decide after his echo if he is safe to proceed with surgery. (4) HTN (hypertension): Code(s): I10 - Essential (primary) hypertension Category: Medical Qualifiers: Hypertension type: unspecified Qualified Code(s): I10 - Essential (primary) hypertension Plan: Blood pressure slightly elevated in office. The patient admitted to drinking 2 small cups of coffee prior to coming to this appointment. Discussed with the patient about not wanting to titrate his medication if his elevated blood pressure is all related to him drinking coffee prior to the visit. Reinforced low-sodium diet. Continue lisinopril 10 mg daily (5) Pure hypercholesterolemia with target low density lipoprotein (LDL) cholesterol less than 130 mg/dL: Code(s): E78.00 - Pure hypercholesterolemia, unspecified Category: Medical Plan: Total cholesterol 221, LDL 146. Reinforced low-cholesterol diet. Atorvastatin 10 mg at bedtime was started. Plan Patient to update office if he need blood work closer to his surgery
[2024-05-27 11:42] VITALS: BP 144/80
--- OUTSIDE RECORDS SUMMARY | 2024-05-27 13:13 | XMS_ITS | Encounter Summary ---
Author Organization [facility] Address [address] [place] [address] Care Team Providers Care Physics Faculty Member Name Role Phone Jason Mcfarlane Primary Care Provider [phone] Reason for Visit * Reason Comments Pre-op Exam * Consultation (Routine) - Closed Specialty Diagnoses / Procedures Referred By Lupe araujo Referred To Contact Cardiology Diagnoses Abnormal EKG Unilateral primary osteoarthritis, left knee Matteo Trivedi MD [address] [place] [address] Phone: tel: fax: [facility] Cardiology [facility] [address] [place] [address] Phone: tel: fax: Referral ID Status Reason Start Date Expiration Date V isits Requested Visits Authorized [id number] Closed Specialty Services Required 05/20/2024 05/20/2025 1 1 Encounter Details Date Type Department Care Team (Latest Contact Info) Description 05/22/2024 8:20 AM EDT Office Visit [facility] Cardiology [facility] [address] [place] [address] Daniela Werner MD [address] [place] [address] [address]IVE [address] [place], [place] [id number] Hypertension, unspecified type (Primary Dx); Abnormal EKG; Unilateral primary osteoarthritis, left knee; Mixed hyperlipidemia Social History Tobacco Use Types Packs/Day Years Used Date Smoking Tobacco: Never Smokeless Tobacco: Never Tobacco Cessation:Counseling Given: Not Answered Alcohol Use Standard Drinks/Week Comments Yes 0 (1 standard drink = 0.6 oz pure alcohol) 4-5 times a week drinks beer, socially Sex and Gender Information Value Date Recorded Sex Assigned at Not on file Legal Sex Male 10:30 AM EST Gender Identity Not on file Sexual Orientation Not on file documented as of this encounter Last Filed Vital Signs Vital Sign Reading Time Taken Comments Blood Pressure - - Pulse 80 05/22/2024 8:17 AM EDT Temperature - - Respiratory Rate - - Oxygen Saturation 97% 05/22/2024 8:17 AM EDT Inhaled Oxygen Concentration - - Weight 89.8 kg (198 lb) 05/22/2024 8:17 AM EDT Height 190.5 cm (6' 3 ) 05/22/2024 8:17 AM EDT Body Mass Index 24.75 05/22/2024 8:17 AM EDT documented in this encounter Progress Notes * Daniela Werner MD - 05/22/2024 8:20 AM EDTAssociated Problem(s): Abnormal EKG Patient's EKG shows significant change consistent with right atrial enlargement. The patient has noprevious cardiovascular history. I have no access available to any old EKGs for comparison. The patient denies pulmonary issues denies symptoms of sleep apnea denies peripheral edema denies palpitations. He has a echocardiogram scheduled at [facility] on 05 June we will get those results andsee if there is any pathology to explain the changes on EKG. The differential would include COPD ASD tricuspid insufficiency though there is no murmur on exam or pulmonary hypertension from chemical exposure or sleep apnea. The real risk of having right atrial enlargement is the risk of A-fib and the risk of tricuspid insufficiency. We have a better understanding as to whether the patient has any of those diagnoses after we get the echo results. My suspicion is that he will be all set up for surgery but there would ibarra increased risk for developing postoperative A-fib which I talk to him about and also spoke to him about the possibility of A-fib in the future given the evidence that we have for his enlargement. Will obtain the echo results after 05 June and update his preoperative status at that point. Orders: Ambulatory referral to Cardiology ECG 12 lead * Daniela Werner MD - 05/22/2024 8:20 AM EDTAssociated Problem(s): Unilateral primary osteoarthritis, left knee Patient scheduled for knee surgery in June Orders: Ambulatory referral to Cardiology ECG 12 lead * Daniela Werner MD - 05/22/2024 8:20 AM EDTAssociated Problem(s): HTN (hypertension) Blood pressure is well-controlled on medical management Orders: ECG 12 lead * Daniela Werner MD - 05/22/2024 8:20 AM EDTAssociated Problem(s): HLD (hyperlipidemia) Patient's on lipid management * Daniela Werner MD - 05/22/2024 8:20 AM EDT Images from the original note were not included. [facility] CONSULT REQUESTED BY: Dr Mcfarlane PCP: Jason Mcfarlane HPI: Daniela Silva is a Patient is a 68-year-old history of left knee pain. History of hypertension and hyperlipidemia. Patient had EKG done that showed right atrial enlargement. The treatment for hypertension hyperlipidemia recently started by his primary care team. Patient denies chest pain pressure shortness of breath PND orthopnea. A little bit of shortness of breath if he bends down and stands up quickly but otherwise no exertional symptoms. His limitations are the pain in his left knee. 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 No history of smoking no diabetes but does have hypertension hyperlipidemia no family history of coronary disease.. The patient has no history consistentwith possible sleep apnea. 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 No history of asthma no history of COPD. ACTIVE MEDICATIONS: Outpatient Medications Marked as Taking for the 05/22/24 encounter (Office Visit) with Daniela Werner MD Medication Sig Dispense Refill atorvastatin (LIPITOR) 10 mg tablet Take 1 tablet (10 mg total) by mouth. at bedtime. lisinopriL (PRINIVIL,ZESTRIL) 10 mg tablet Take 1 tablet (10 mg total) by mouth 1 (one) time each day. PAST MEDICAL HISTORY: Patient Active Problem List Diagnosis HTN (hypertension) HLD (hyperlipidemia) S/P hernia surgery Unilateral primary osteoarthritis, left knee Alcohol dependence, uncomplicated (CMS/HCC) Primary osteoarthritis of right knee Abnormal EKG ALLERGIES: No Known Allergies FAMILY HISTORY: No family history on file. SOCIAL HISTORY: Social History Tobacco Use Smoking status: Never Smokeless tobacco: Never Substance Use Topics Alcohol use: Yes Comment: 4-5 times a week drinks beer, socially REVIEW OF SYSTEMS: Review of Systems Constitutional: Negative. HENT: Negative. Eyes: Negative. Cardiovascular: Negative. Respiratory: Negative. Endocrine: Negative. Hematologic/Lymphatic: Negative. Skin: Negative. Musculoskeletal: Positive for joint pain and joint swelling. Gastrointestinal: Negative. Genitourinary: Negative. Neurological: Negative. Psychiatric/Behavioral: Negative. Allergic/Immunologic: Negative. All other systems reviewed and are negative. PHYSICAL EXAM: Vitals: 05/22/24 0817 Pulse: 80 SpO2: 97% Weight: 89.8 kg (198 lb) Height: 1.905 m (75 ) Physical Exam Constitutional: Appearance: Normal appearance. HENT: Head: Normocephalic and atraumatic. Nose: Nose normal. Eyes: Extraocular Movements: Extraocular movements intact. Pupils: Pupils are equal, round, and reactive to light. Cardiovascular: Rate and Rhythm: Regular rhythm. Pulmonary: Breath sounds: Normal breath sounds. Abdominal: General: Abdomen is flat. Bowel sounds are normal. Palpations: Abdomen is soft. Musculoskeletal: General: Normal range of motion. Cervical back: Normal range of motion and neck supple. Skin: General: Skin is warm and dry. Neurological: General: No focal deficit present. Mental Status: He is alert. Psychiatric: Mood and Affect: Mood normal. EKG: Encounter Date: 05/22/24 ECG 12 lead Result Value Ventricular Rate ECG 80 Atrial Rate 80 P-R Interval 146 QRS Duration 88 Q-T Interval 378 QTc 435 P Wave Colome 89 R Colome 34 T Colome 48 ECG Interpretation Normal sinus rhythm Right atrial enlargement Borderline ECG No previous ECGs available *Note: Due to a large number of results and/or encounters for the requested time period, some results have not been displayed. A complete set of results can be found in Results Review. ASSESSMENT/PLAN: Assessment & Plan Abnormal EKG Patient's EKG shows significant change consistent with right atrial enlargement. The patient has noprevious cardiovascular history. I have no access available to any old EKGs for comparison. The patient denies pulmonary issues denies symptoms of sleep apnea denies peripheral edema denies palpitations. He has a echocardiogram scheduled at [facility] on 05 June we will get those results andsee if there is any pathology to explain the changes on EKG. The differential would include COPD ASD tricuspid insufficiency though there is no murmur on exam or pulmonary hypertension from chemical exposure or sleep apnea. The real risk of having right atrial enlargement is the risk of A-fib and the risk of tricuspid insufficiency. We have a better understanding as to whether the patient has any of those diagnoses after we get the echo results. My suspicion is that he will be all set up for surgery but there would ibarra increased risk for developing postoperative A-fib which I talk to him about and also spoke to him about the possibility of A-fib in the future given the evidence that we have for his enlargement. Will obtain the echo results after 05 June and update his preoperative status at that point. Orders: Ambulatory referral to Cardiology ECG 12 lead Unilateral primary osteoarthritis, left knee Patient scheduled for knee surgery in June Orders: Ambulatory referral to Cardiology ECG 12 lead Hypertension, unspecified type Blood pressure is well-controlled on medical management Orders: ECG 12 lead Mixed hyperlipidemia Patient's on lipid management The above note was prepared with the help of voice recognition software. Please excuse any grammatical or spelling errors that may have occurred The [facility] team will continue to co-manage this patient following the plan of care as established by my initial visit and as per AHA guidelines for ongoing management and surveillance of Abnormal EKG This will include medication titration, initiation of appropriate medications and further titration, and diagnostic studies to manage this disease process. documented in this encounter Plan of Treatment Upcoming Encounters Date Type Department Care Team (Latest Contact Info) Description 07/02/2024 11:30 AM EDT Consult Orthopedic Surgery [place] [address] [phone] Awa Stack NP [address] [address] 07/07/2024 7:30 AM EDT Hospital Encounter [facility] Main OR [address] [place] [phone] Matteo Trivedi MD [address] [address] 07/07/2024 7:30 AM EDT - 07/07/2024 10:00 AM EDT Surgery [facility] OR [address] [place] [phone] Matteo Trivedi MD [address] [address] LEFT TOTAL KNEE ARTHROPLASTY [39520 (CPT??)] 07/23/2024 1:30 PM EDT Office Visit Orthopedic Surgery [place] [address] [phone] Matteo Trivedi MD [address] [address] Scheduled Procedures Name Priority Associated Diagnoses Date/Ti me ARTHROPLASTY KNEE TOTAL Unilateral primary osteoarthritis, left knee 07/07/2024 7:30 AM EDT documented as of this encounter Procedures Procedure Name Priority Date/Time Associated Diagnosis Comments ECG 12-LEAD Routine 05/22/2024 8:28 AM EDT Abnormal EKG Unilateral primary osteoarthritis, left knee Hypertension, unspecified type documented in this encounter Results * ECG 12 lead (05/22/2024 8:28 AM EDT) Ventricular Rate ECG 80 BPM GEMUSE Atrial Rate 80 BPM GEMUSE P-R Interval 146 ms GEMUSE QRS Duration 88 ms GEMUSE Q-T Interval 378 ms GEMUSE QTc 435 ms GEMUSE P Wave Colome 89 degrees GEMUSE R Colome 34 degrees GEMUSE T Colome 48 degrees GEMUSE ECG Interpretation Normal sinus rhythm Right atrial enlargement Borderline ECG No previous ECGs available Confirmed by Dominick WERNER, DANIELA ([id number]) on 05/22/2024 11:11:33 AM GEMUSE 05/22/2024 8:28 AM EDT 05/22/2024 11:11 AM EDT us Daniela Werner MD ECG ORDERABLES Final Result GEMUSE documented in this encounter Visit Diagnoses Diagnosis Unilateral primary osteoarthritis, left knee- Primary Hypertension, unspecified type- Primary Abnormal EKG Nonspecific abnormal electrocardiogram (ECG) (EKG) Unilateral primary osteoarthritis, left knee Mixed hyperlipidemia Unilateral primary osteoarthritis, left knee documented in this encounter Orders Outpatient Referral Count Last Ordered Date Fir st Ordered Date AMB REFERRAL TO CARDIOLOGY 1 05/22/2024 documented in this encounter Care Teams Physics Faculty Member Relationship Specialty Start Date End Date Jason Mcfarlane [address] [facility], [address] [place] [address] PCP - General Family Medicine 05/06/24 documented as of this encounter
--- OUTSIDE RECORDS SUMMARY | 2024-05-27 13:13 | XMS_ITS | Clinical Summary ---
Author Organization [facility] Address [address] [place] [address] Phone Care Team Providers Care Solution Specialist Name Role Phone Jason Mcfarlane Primary Care Provider [phone] Allergies No known active allergies Medications lisinopriL (PRINIVIL,ZESTRI L) 10 mg tablet Take 1 tablet (10 mg total) by mouth 1 (one) time each day. 05/07/2024 Active atorvastatin (LIPITOR) 10 mg tablet Take 1 tablet (10 mg total) by mouth. at bedtime. 05/07/2024 Active Active Problems Problem Noted Date Diagnosed Date Abnormal EKG 05/21/2024 Assessment & Plan (05/22/2024 9:15 AM EDT): Patient's EKG shows significant change consistent with right atrial enlargement. The patient has no previous cardiovascular history. I have no access available to any old EKGs for comparison. The patient denies pulmonary issues denies symptoms of sleep apnea denies peripheral edema denies palpitations. He has a echocardiogram scheduled at [facility] on 05 June we will get those results and see if there is any pathology to explain [...] set up for surgery but there would be an increased risk for developing postoperative A-fib which I talk to him about and also spoke to him about the possibility of A-fib in the future given the evidence that we have for his enlargement. Will obtain the echo results after 05 June and update his preoperative status at that point. Orders: Ambulatory referral to Cardiology ECG 12 lead HTN (hypertension) 05/14/2024 Assessment & Plan (05/22/2024 9:15 AM EDT): Blood pressure is well-controlled on medical management Orders: ECG 12 lead HLD (hyperlipidemia) 05/14/2024 Assessment & Plan (05/22/2024 9:15 AM EDT): Patient's on lipid management S/P hernia surgery 05/14/2024 Unilateral primary osteoarthritis, left knee Assessment & Plan (05/22/2024 9:15 AM EDT): Patient scheduled for knee surgery in June Orders: Ambulatory referral to Cardiology ECG 12 lead Alcohol dependence, uncomplicated 05/14/2024 Primary osteoarthritis of right knee 05/14/2024 Encounters Date Type Department Care Team Description 05/22/2024 8:20 AM EDT Office Visit [facility] [address] [place] [address] Dav Werner MD Hypertension, unspecified type (Primary Dx); Abnormal EKG; Unilateral primary osteoarthritis, left knee; Mixed hyperlipidemia 05/20/2024 Telephone Orthopedic Surgery [facility] [address] [facility] [address] [phone] Krystal Chester [place] Cardio 05/20/2024 Telephone Orthopedic Surgery [facility] [address] [facility] [address] [place] [phone] Krystal Chester [place] 05/14/2024 9:30 AM EDT Consult Orthopedic Surgery [facility] [address] [phone] Matteo Trivedi MD Unilateral primary osteoarthritis, left knee (Primary Dx); Primary osteoarthritis of right knee; Alcohol dependence, uncomplicated (CMS/HCC) 04/02/2024 Telephone Orthopedic Surgery [facility] [address] [phone] Matteo Trivedi MD Referral 03/20/2024 10:33 AM EST - 03/20/2024 11:59 PM EST Hospital Encounter [facility] Ortho Xray [address] [place] [address] Pain Discharge Disposition: Home or Self Care [...] on file Sexual Orientation Not on file Obstetrics History Last Filed Vital Signs Vital Sign Reading [...] Mass Index 24.75 05/22/2024 8:17 AM EDT Plan of Treatment Upcoming Encounters Date Type Department Care Team (Latest Contact Info) Description 07/02/2024 11:30 AM EDT Consult Orthopedic Surgery - [place] [address] [phone] Awa Stack NP [address] [address] 07/07/2024 7:30 AM EDT Hospital Encounter [facility] Main OR [address] [place] [phone] Matteo Trivedi MD [address] [address] 07/07/2024 7:30 AM EDT - 07/07/2024 10:00 AM EDT Surgery [facility] Main OR [address] [place] [phone] Matteo Trivedi MD [address] [address] LEFT TOTAL KNEE ARTHROPLASTY [35230 (CPT??)] 07/23/2024 1:30 PM EDT Office Visit Orthopedic Surgery - [place] [address] [phone] Matteo Trivedi MD [address] [address] Scheduled Procedures Name Priority Associated Diagnoses Date/Ti me ARTHROPLASTY KNEE TOTAL Unilateral primary osteoarthritis, left knee 07/07/2024 7:30 AM EDT Health Maintenance Due Date Last Done Comments DTaP,Tdap,and Td Vaccines (1 - Tdap) 1973 Hepatitis A Vaccines (1 of 2 - Risk 2-dose series) 1973 Pneumococcal Vaccine: 50+ Ye ars (1 of 1 - PCV) 2004 Zoster Vaccines (1 of 2) 2004 COVID-19 Vaccine ( - 2023-2 5 season) 2023 Cholesterol Screening (Lipid Panel) 03/20/2024 Colorectal Cancer Screening: Colonoscopy 03/20/2024 Depression Screening 03/20/2024 Falls Risk Assessment 03/20/2024 Hepatitis C Screening 03/20/2024 Medicare Annual Wellness Visit 03/20/2024 Social Influencers of Health Screening 03/20/2024 Hypertension/CHF/CAD Annual BMP Blood Test 05/14/2024 Influenza Vaccine (Season Ended) 2024 RSV Immunization Adult Patie nts (1 - 1-dose 75+ series) 2029 HIB [...] age to complete this topic Meningococcal B Vaccine Aged Out No l onger eligible based on patient's age to complete [...] primary osteoarthritis, left knee Hypertension, unspecified type XR KNEE 1-2 VIEWS BILAT Routine 03/20/2024 10:41 AM EST Pain from Last 3 Months Results * ECG 12 lead (05/22/2024 8:28 AM EDT) Ventricular Rate ECG 80 BPM GEMUSE Atrial Rate 80 BPM GEMUSE P-R Interval 146 ms GEMUSE QRS Duration 88 ms GEMUSE Q-T Interval 378 ms GEMUSE QTc 435 ms GEMUSE P Wave [place] 89 degrees GEMUSE R [place] 34 degrees GEMUSE T [place] 48 degrees GEMUSE ECG Interpretation Normal sinus rhythm Right atrial enlargement Borderline ECG No previous ECGs available Confirmed by Dominick WERNER JAMES ([id number]) on 05/22/2024 11:11:33 AM GEMUSE 05/22/2024 8:28 AM EDT 05/22/2024 11:11 AM EDT us Dav Werner MD ECG ORDERABLES Final Result GEMUSE * XR Knee 1-2 Views bilat (03/20/2024 10:41 AM EST) Narrative RIS PACS/VR - 03/20/2024 10:41 AM EST This order has been auto-finalized and does not contain a result. us Jj Nelson MD IMG XR PROCEDURES Final Result RIS PACS/VR from Last 3 Months Insurance [employer] MED[employer]ARE [employer]VANTAGE Care Teams Solution Specialist Relationship Specialty Start Date End Date Jason Mcfarlane 2 [facility], [address] [place] [address] PCP - General Family Medicine 05/06/24
== END 2024-05-27 12:34 | disposition home or self-care (01) ==
DX: Z01.818 Encounter for other preprocedural examination (principal); M17.12 Unilateral primary osteoarthritis, left knee; I51.7 Cardiomegaly; I10 Essential (primary) hypertension; E78.00 Pure hypercholesterolemia, unspecified

== ENCOUNTER → 2024-05-27 10:53 | Outpatient (BNVA) | payer MEDICARE, SELFPAY | DX: Z01.818 Encounter for other preprocedural examination (principal); M17.12 Unilateral primary osteoarthritis, left knee; E78.00 Pure hypercholesterolemia, unspecified; I10 Essential (primary) hypertension | CPT/HCPCS: 99212 ==

== ENCOUNTER → 2024-06-05 13:54 | Outpatient (REF) | payer MEDICARE, SELFPAY ==
--- NOTE | 2024-06-05 13:57 | CA_ITS ---
Transthoracic Echocardiogram Patient (Last, First, Middle): Dav Silva P Gender: Male Date of : 1955 Age: 68 Procedure Date: 06/05/2024 Procedure Type: Transthoracic Echocardiogram Location: OP Height: 187. 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 Normal LV ejection fraction of 60-65% with grade 1 diastolic dysfunction 2. Fibrocalcific aortic and mitral valve changes noted with normal cardiac valvular Dopplers 3. Mildly dilated ascending aorta at 4.1 cm 4. No gross pericardial effusion Findings Left Ventricle Normal left ventricular size, thickness, and systolic function. The visually estimated ejection fraction is between 60-65%. Spectral Doppler is indicative of an impaired relaxation filling pattern. E/E prime ratio is <8, consistent with normal filling pressures. Evidence suggests grade I (mild) diastolic dysfunction. Right Ventricle Normal right ventricular cavity size and systolic function. Atria Both atria are normal in size. There is lipomatous hypertrophy of the interatrial septum. There is no evidence of interatrial shunt. Aortic Valve There is mild calcification of the aortic valve. There is no aortic valve stenosis. There is no aortic valve regurgitation. Mitral Valve There is mild anterior and posterior mitral leaflet thickening. There is mild mitral annular calcification. There is trace mitral valve regurgitation. There is no mitral valve stenosis. Pulmonic Valve The pulmonic valve was not well visualized. Tricuspid Valve Likely normal tricuspid valve structure and function. Tricuspid regurgitation envelope is inadequate for calculation of right ventricular systolic pressure. Normal right atrial pressure. Great Vessels The pulmonary artery was not well visualized. There is mild dilatation of the ascending aorta measuring 4.10 cm. Small plaque is seen in the sino tubular ridge. Venous The inferior vena cava is normal in size and collapses greater than 50% with inspiration. Pericardium/Pleural There is no evidence of pericardial effusion. Prior Study Comparison No prior study available for comparison. Measurements 2D Linear Measurements IVSd: 0.96 0.6-0.9/0.6-1.0 cm LVIDd: 4.31 3.9-5.3/4.2-5.9 cm LVIDd Index: 1.99 2.4-3.2/2.2-3.1 cm/m2 LVIDs: 2.84 2.0-3.6 cm LVPWd: 1.13 0.7-1.1 cm LA Diam: 2.50 2.7-3.8/3.0-4.0 cm LAIDs Index: 1.15 1.5-2.3 cm/m2 LV Mass: 189.49 67-162/88-224 g LV Mass Index: 87.32 43-95/49-115 g/m2 LVOT Diam: 2.30 3.0+(-)1.3 cm 2D Systolic Function EF 4C: 61.70 >55% EF 2C: 64.60 >55% EF BiP: 63.60 >55% Mitral Valve MV Pk E: 0.55 MV PK A: 0.71 MV Decel Time: 343.00 E/A: 0.80 E'Lateral: 11.60 E'Medial: 7.72 E/E' Med: 7.10 E/E' Lat: 4.70 PHT: 101.00 MVA PHT: 2.18 Decel Alcorn: 1.60 Aortic Valve AoV Pk Favio: 1.58 AoV Mn Favio: 1.16 AoV VTI: 0.28 AoV Pk Grad: 10.00 Aov Mn Grad: 6.00 SATISH Cont.VTI: 2.93 LVOT LVOT Pk Favio: 1.15 LVOT Mn Favio: 0.80 LVOT VTI: 0.20 LVOT Pk Grad: 5.00 LVOT Mn Grad: 3.00 LVOT Diam: 2.30 LVOT Area: 4.15 Diastolic Function MV Pk E: 0.55 MV Pk A: 0.71 E/A: 0.80 E'Medial: 7.72 E/E' Med: 7.10 E' Laterial: 11.60 E/E' Lat: 4.70 Right Ventricle TAPSE (mm): 20.40 TVS' Favio: 10.90 Tricuspid Valve RA Press: 3.00 Great Vessels Aorta Sinus of Valsalva: 4.10 2.0-3.5 cm Ao Asc: 4.10 2.1-3.4 cm Ao Arch: 2.80 Pulmonary Valve PV Pk Favio: 0.87 Peak PV Grad: 3.00 Updated in Other Vendor System with Status of Final Christ Wood MD electronically signed on 06/06/2024 2:10:00 PM with status of Final
--- OUTSIDE RECORDS SUMMARY | 2024-06-05 16:59 | XMS_ITS | Clinical Summary ---
Author Organization [facility] Address [address] [place] [address] Phone Care Team Providers Care Personal Care Worker Name Role Phone Jason Mcfarlane Primary Care Provider [phone] Allergies No known active allergies Medications lisinopriL [...] palpitations. He has a echocardiogram scheduled at [facility] on 05 June we will get [...] to Cardiology ECG 12 lead Alcohol dependence, uncompli cated (CMS/HCC V24, CMS/HCC V28) 05/14/2024 Primary osteoarthritis of right knee 05/14/2024 Encounters Date Type Department Care Team Description 06/03/2024 Telephone Orthopedic Surgery [facility] [address] [phone] Christelle Buchanan RN PREOP REVIEW 05/22/2024 8:20 AM EDT Office Visit [facility] [address] [place] [phone] Daniela Werner MD Hypertension, unspecified type (Primary Dx); Abnormal EKG; Unilateral primary osteoarthritis, left knee; Mixed hyperlipidemia 05/20/2024 Telephone Orthopedic Surgery [facility] [address] [place] [phone] Krystal Chester MA Cardio 05/20/2024 Telephone Orthopedic Surgery [facility] [address] [facility] [address] [place] [phone] Krystal Chester MA 05/14/2024 9:30 AM EDT Consult Orthopedic Surgery [facility] [address] [facility] [address] [place] [phone] Matteo Trivedi MD Unilateral primary osteoarthritis, left knee (Primary Dx); Primary osteoarthritis of right knee; Alcohol dependence, uncomplicated ([facility] V24, [facility] V28) 04/02/2024 Telephone Orthopedic Surgery [facility] [address] [phone] Matteo Trivedi MD Referral 03/20/2024 10:33 AM EST - 03/20/2024 11:59 PM EST Hospital Encounter [facility] Ortho Xray [address] [place] [address] Pain Discharge Disposition: Home or Self Care from Last 3 Months Surgical History Surgery Date Site/Laterality Comments HERNIA REPAIR Medical History Medical History Date Comments HTN (hypertension) HLD (hyperlipidemia) OA (osteoarthritis) Social History Tobacco Use Types Packs/Day Years [...] EDT Inhaled Oxygen Concentration - - Weight 90.7 kg (200 lb) 06/03/2024 10:00 AM EDT Height 190.5 cm (6' 3 ) 06/03/2024 10:00 AM EDT Body Mass Index 25 06/03/2024 10:00 AM EDT Plan of Treatment Upcoming Encounters Date Type Department Care Team (Latest Contact Info) Description 07/02/2024 11:30 AM EDT Consult Orthopedic Surgery [facility] [address] [phone] Awa Stack NP [address] [address] 07/07/2024 7:30 AM EDT Hospital Encounter [facility] Main OR [address] [place] [phone] Matteo Trivedi MD [address] [address] 07/07/2024 7:30 AM EDT - 07/07/2024 10:00 AM EDT Surgery [facility] Main OR [address] [place] [phone] Matteo Trivedi MD [address] [address] LEFT TOTAL KNEE ARTHROPLASTY [01271 (CPT??)] 07/23/2024 1:30 PM EDT Office Visit Orthopedic Surgery - [place] [address] [phone] Matteo Trivedi MD [address] [address] Scheduled Procedures Name Priority Associated Diagnoses Date/Ti [...] GEMUSE QTc 435 ms GEMUSE P Wave Paterson 89 degrees GEMUSE R [place] 34 degrees GEMUSE T [place] 48 degrees GEMUSE ECG Interpretation Normal sinus [...] Months Insurance [employer] MED[employer]ARE [employer]VANTAGE Care Teams Personal Care Worker Relationship Specialty Start Date End Date Jason Mcfarlane [address] [facility], [address] [place] [address] PCP - General Family Medicine 05/06/24
--- OUTSIDE RECORDS SUMMARY | 2024-06-05 17:00 | XMS_ITS | Encounter Summary ---
Author Organization [employer] Address [address] [place] [address] Care Team Providers Care Early Childhood Services Coordinator Name Role Phone Jason Mcfarlane Primary Care Provider [phone] Reason for Visit * Reason Onset Date Comments PREOP REVIEW 06/03/2024 Encounter Details Date Type Department Care Team (Late st Contact Info) Description 06/03/2024 Telephone [facility]opedic [facility] [place] [address] [place] [phone] Christelle Buchanan, BETTINA PREOP REVIEW Social History Tobacco Use Types Packs/Day Years Used Date Smoking Tobacco: Never Smokeless Tobacco: Never Alcohol Use Standard Drinks/Week Comments Yes 0 (1 standard drink = 0.6 oz pure alcohol) 4-5 times a week drinks beer, socially Sex and Gender Information Value Date Recorded Sex Assigned at Not on file Legal Sex Male 10:30 AM EST Gender Identity Not on file Sexual Orientation Not on file documented as of this encounter Progress Notes * Christelle Buchanan RN - 06/03/2024 10:35 AM EDT PRE-OP REVIEW: Prior Living Arrangements: Lives with Elma, in a private home, there are 2 steps to enter without a railing, once inside everything is on one level and will assist with laundry Who will assist patient at home: Spouse Elma DME: has comfort height toilet, he is going to borrow a 2 ww and cane Outside Services: none PCP: Dr. Mcfarlane HCP: does not have a HCP, will need to complete one prior to surgery Patient's discharge goal: home with [facility]NA=[facility] agency of choice and prebooked Patient's ride home: Spouse Elma [phone] This nurse instructed patient NPO after midnight the day prior to surgery and small sips of H20 with medications on day of surgery. Patient instructed not to take lisinopril on day of surgery. documented in this encounter Plan of Treatment Upcoming Encounters Date Type Department Care Team (Latest Contact Info) Description 07/02/2024 11:30 AM EDT Consult Orthopedic Surgery [place] [address] [phone] Awa Stack NP [address] [address] 07/07/2024 7:30 AM EDT Hospital Encounter [facility] Main OR [address] [place] [phone] Matteo Trivedi MD [address] [address] 07/07/2024 7:30 AM EDT - 07/07/2024 10:00 AM EDT Surgery [facility] OR [address] [place] [phone] Matteo Trivedi MD [address] [address] LEFT TOTAL KNEE ARTHROPLASTY [65191 (CPT??)] 07/23/2024 1:30 PM EDT Office Visit Orthopedic Surgery [place] [address] [phone] Matteo Trivedi MD [address] [address] Scheduled Procedures Name Priority Associated Diagnoses Date/Ti me ARTHROPLASTY KNEE TOTAL Unilateral primary osteoarthritis, left knee 07/07/2024 7:30 AM EDT documented as of this encounter Visit Diagnoses Not on filedocumented in this encounter Care Teams Early Childhood Services Coordinator Relationship Specialty Start Date End Date Jason Mcfarlane 2 [facility], [address] [place] [address] PCP - General Family Medicine 05/06/24 documented as of this encounter
== END ==
LOC: HO.CARD 13:54
PROVIDERS: Absent Provider Internal Medicine Cardiovascular Disease
DX: I51.7 Cardiomegaly (principal)
CPT/HCPCS: 93306

== ENCOUNTER → 2024-06-05 13:57 | Outpatient (BNV) | payer MEDICARE, SELFPAY | PROVIDERS: Absent Provider Internal Medicine Cardiovascular Disease; Visit Provider Internal Medicine Cardiovascular Disease | DX: I51.7 Cardiomegaly (principal) | CPT/HCPCS: 93306 ==

== ENCOUNTER 2024-08-07 08:46 | Outpatient (AMB) | payer MEDICARE, SELFPAY ==
--- NOTE | 2024-08-07 08:59 | MHC.PC.OV ---
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: No Accompanied by: Self / Same As Patient Allergies No Known Allergies (No Known Allergies*) Allergy (Verified 08/07/24 09:22) Medication List - Last Reconciled 08/07/24 by JOSELINE Minor atorvastatin 10 mg PO BEDTIME 90 days lisinopril 10 mg PO DAILY Tobacco use date assessed: 08/07/24 Fall risk assessment: No Falls in past year Last assessed Fall Risk: 08/07/24 Dental Screening Dental Screen Date: 08/07/24 Did you have a dental visit in the last 12 months?: Yes Did you have a dental problem in the last 6 months where you did not have access to dental care?: No Was dental information given to patient?: Patient has dentist HPI HTN/HLD HPI Details The patient is a 69-year-old male presenting follow up of his HTN, HLD Patient did not complete as preordered labs and will wait till september to get this done to coordinate this lab with labs for preoperative clearance He was supposed to have left knee surgery done, but this was placed on hold due to dental infection and the need for tooth extraction They gave him a tentative date of October 13 He also might need another preoperative clearance appointment-he will call and update us His blood pressure is normal in office today Reports he did not drink his coffee before coming in today On his previous visit his lisinopril was increased to 10 mg; this seems to be working well for him [facility] Medical History (Updated 08/07/24 @ 09:53 by JOSELINE Minor) HTN (hypertension) Surgical History Hx of hernia repair Family History Mother Alzheimer dementia Father Heart attack Daughter No problems noted. Daughter No problems noted. Social History Housing: House Patient Tobacco Use Status: Never used Tobacco e-Cigarette/Vaping Use: Never Used Substance Use Type: Marijuana service: No Current occupational status: retired Current occupational exposures/hazards: No Cognitive needs: No Hearing needs: No Vision needs: No Questionnaire Thrive Questionnaire Date Thrive assessed: 08/07/24 I am a: Patient What is your living situation today?: I have a steady place to live Within the past 12 months, did the food you bought not last and you didn't have the money to get more?: Never true Within the past 12 months, did you worry whether your food would run out before you got money to buy more?: Never true Do you have trouble paying for medicines?: No Do you have trouble getting transportation to medical appointments?: No Do you have trouble paying your heating and electricity bill?: No Do you have trouble taking care of your child, family member or friend?: No Do you have trouble with day-to-day activities such as bathing, preparing meals, shopping, managing finances, etc.?: No Are you currently unemployed and looking for a job?: No Are you interested in more education?: No Please select the resources that you would like help with: None Currently or been in a relationship where the following occur: I choose not to answer THRIVE Score: 0 AUDIT C Alcohol Use Questionnaire (AUDIT-C) 1. How often do you have a drink containing alcohol?: 4 or more times a week 2. How many drinks containing alcohol do you have on a typical day when you are drinking?: 5 or 6 3. How often do you have six or more drinks on one occasion?: Weekly Total Score: 9 Score Reviewed/Action Taken: Yes CORDELIA-7 AMB Questionnaire CORDELIA-7 Date CORDELIA - 7 assessed: 05/27/24 Source: Developed by Drs. Jose Abdul, Belle Bloom, Jah Francis and colleagues, with an educational carlos from [employer]. Review of Systems Const Denies headache(s) Eyes Denies loss of vision ENT Denies vertigo, Denies dizziness, Denies headache(s) and Denies sore throat Card Denies chest pain, Denies pedal edema, Denies leg edema and Denies lightheadedness Resp Denies cough, Denies hemoptysis and Denies wheezing Musc Reports arthralgias (left knee pain), Denies joint swelling, Denies numbness and Denies tingling Neuro Denies Abnormal speech present, Denies vertigo, Denies dizziness, Denies headache(s), Denies loss of vision, Denies numbness and Denies tingling Aller/Immun Denies wheezing Physical exam (Primary Care) Vital Signs: Last Vital Signs Temp 98.5 F 08/07/24 09:00 Pulse 60 08/07/24 09:00 Resp 18 08/07/24 09:00 BP 124/80 08/07/24 09:00 Pulse Ox 97 08/07/24 09:00 Oxygen Delivery Method Room Air 08/07/24 09:00 BMI result Body Mass Index 24.8 Tobacco/Smoking Status: Tobacco use Status Tobacco use date assessed 08/07/24 08/07/24 09:08 Patient Tobacco Use Status Never used Tobacco 08/07/24 09:08 e-Cigarette/Vaping Use Never Used 08/07/24 09:08 Thrive Assessment: Date of Thrive Assessment Date Thrive assessed 08/07/24 08/07/24 09:08 Currently or been in a relationship where the following occur: I choose not to answer Const General: healthy appearing, no acute distress, alert and awake Nutritional Appearance: well nourished Orientation/consciousness: oriented to person, oriented to place and oriented to time HENMT Ears: external ears normal General nose exam: Normal external nose present Eyes Conjunctivae: conjunctivae normal Sclerae: sclerae normal Pupils: Equal, round and reactive pupils present Neck Neck: Yes no lymphadenopathy and Yes no JVD Thyroid: Thyroid normal Carotids: no bruits Resp Effort & Inspection: normal respiratory effort and not tachypneic Auscultation: no crackles, no rales, no rhonchi and no wheezes Cardio Rate: regular rate Rhythm: regular rhythm Heart sounds: no murmurs and normal S1 and S2 Skin General skin exam: no rashes or lesions noted and dry skin Neuro General: oriented to person, oriented to place and oriented to time Cranial nerves: Yes Equal, round and reactive pupils present Speech: No Abnormal speech present Gait exam (Neuro): Antalgic gait present Motor exam (neuro): no tremor noted Extrem Right upper extremity: full ROM Left upper extremity: full ROM Right lower extremity: full ROM; no edema Left lower extremity: full ROM and knee Details: tenderness Location: of the medial joint line and of the pre-patellar area; no edema Coding Level of Care Code Est Pt Level 3 (17970) Diagnoses Hypertension, unspecified type I10 Hypertension type: unspecified Pure hypercholesterolemia with target low density lipoprotein (LDL) cholesterol less than 130 mg/dL E78.00 Alcohol dependence with unspecified alcohol-induced disorder F10.29 Substance use status: unspecified alcohol-induced disorder Arthritis of left knee M17.12 Abnormal fasting glucose R73.01 Time Spent (min) 31 Assessment & Plan Assessment & Plan (1) HTN (hypertension): Code(s): I10 - Essential (primary) hypertension Category: Medical Qualifiers: Hypertension type: unspecified Qualified Code(s): I10 - Essential (primary) hypertension Plan: Encouraged DASH diet and activity as tolerated-goal systolic is less than 130 mmhg Refrain from alcohol use and if you smoke, smoking cessation is strongly advised Continue lisinopril 10 mg daily (2) Pure hypercholesterolemia with target low density lipoprotein (LDL) cholesterol less than 130 mg/dL: Code(s): E78.00 - Pure hypercholesterolemia, unspecified Category: Medical Plan: Patient did not complete preordered follow up labs [id number], T-cho 221 04/2024 Continue atorvastatin 10 mg daily will get lipid panel done in September with other labs for his preop (3) Alcohol dependence: Code(s): F10.20 - Alcohol dependence, uncomplicated Category: Medical Qualifiers: Substance use status: unspecified alcohol-induced disorder Qualified Code(s): F10.29 - Alcohol dependence with unspecified alcohol-induced disorder Plan: encouraged cessation (4) Arthritis of left knee: Code(s): M17.12 - Unilateral primary osteoarthritis, left knee Category: Medical Plan: Pending knee surgery-was held off due to tooth extraction/dental work was given attentive date of October 13 was told that he will need to repeat his labs and might need another preoperative clearance he will call to update us (5) Abnormal fasting glucose: Code(s): R73.01 - Impaired fasting glucose Category: Medical Plan: fasting bs 110 04/2024 AIC was added to follow labs pt will complete in September with other labs Medications: Refilled atorvastatin 10 mg PO BEDTIME 90 tabs 1RF 90 days E78.00 - Pure hypercholesterolemia, unspecified lisinopril 10 mg PO DAILY 90 tabs 3RF I10 - Essential (primary) hypertension lisinopril 10 mg PO DAILY 30 tabs 3RF I10 - Essential (primary) hypertension
[2024-08-07 09:00] VITALS: BP 124/80; PULSE 60; RESP 18; TEMP 36.9; O2SAT 97; BMI 24.8
--- OUTSIDE RECORDS SUMMARY | 2024-08-07 09:09 | XMS_ITS | Clinical Summary ---
Author Organization [facility] Address [address] [place] [address] Phone Care Team Providers Care Infection Control Specialist Name Role Phone Jason Mcfarlane Primary Care Provider Allergies No known active allergies Medications lisinopriL (PRINIVIL,ZESTRI L) 10 mg tablet Take 1 tablet (10 mg total) by mouth 1 (one) time each day. 05/07/2024 Active atorvastatin (LIPITOR) 10 mg tablet Take 1 tablet (10 mg total) by mouth. at bedtime. 05/07/2024 Active erythromycin 5 mg/gram (0.5 %) ophthalmic ointment APPLY SMALL AMOUNT TO LEFT LOWER EYELID THREE TIMES A DAY 06/27/2024 Active Active Problems Problem Noted Date Diagnosed [...] palpitations. He has a echocardiogram scheduled at [facility] on 05 June we will get [...] Encounters Date Type Department Care Team Description 07/23/2024 Telephone Orthopedic Surgery [facility] [address] [phone] Krystal Chester MA Surgery 07/16/2024 Telephone Orthopedic Surgery [facility] [address] [phone] Krystal Chester MA Surgery 07/02/2024 11:30 AM EDT Consult Orthopedic Surgery [facility] [address] [phone] Awa Stack NP Pre-operative exam (Primary Dx); Unilateral primary osteoarthritis, left knee 07/02/2024 Telephone Orthopedic Surgery [facility] [address] [phone] Christelle Buchanan, project management professional time 07/02/2024 Telephone Orthopedic Surgery [facility] [address] [facility] [address] [place] [phone] Christelle Buchanan, RN PT Initial Eval 06/18/2024 Telephone [facility] Cardiology [facility] [address] [place] [address] Dav Werner MD Procedure (Clearance needed ) 06/12/2024 Telephone Orthopedic Surgery [facility] [address] [facility] [address] [place] [phone] Christelle Buchanan, BETTINA Labs Only 06/11/2024 Telephone Orthopedic Surgery [facility] [address] [facility] [address] [place] [phone] Christelle Buchanan, BETTINA 06/11/2024 Telephone Orthopedic Surgery [facility] [address] [facility] [address] [place] [phone] Christelle Buchanan, BETTINA 06/09/2024 Telephone Orthopedic Surgery [facility] [address] [facility] [address] [place] [phone] Christelle Buchanan, BETTINA 06/06/2024 Telephone [facility] Cardiology [facility] [address] [place] [address] Dav Werner MD Results (Echo done at [facility]) 06/03/2024 Telephone Orthopedic [facility] [address] [facility] [address] [place] [phone] Christelle Buchanan, RN PREOP REVIEW 05/22/2024 8:20 AM EDT Office Visit [facility] Cardiology [facility] [address] [place] [phone] Dav Werner MD Hypertension, unspecified type (Primary Dx); Abnormal EKG; Unilateral primary osteoarthritis, left knee; Mixed hyperlipidemia 05/20/2024 Telephone Orthopedic Surgery [facility] [address] [facility] [address] [place] [phone] Krystal Chester MA Cardio 05/20/2024 Telephone Orthopedic Surgery [facility] [address] [phone] Krystal Chester MA 05/14/2024 9:30 AM EDT Consult Orthopedic Surgery [facility] [address] [phone] Matteo Trivedi MD Unilateral primary osteoarthritis, left knee (Primary Dx); Primary osteoarthritis of right knee; Alcohol dependence, uncomplicated (CMS/[facility] V24, CMS/[facility] V28) from Last 3 Months Surgical History Surgery [...] Information Value Date Recorded Sex Assigned at Male 07/02/2024 9:59 AM EDT Legal Sex Male 10:30 AM EST Gender Identity Male 07/02/2024 9:59 AM EDT Sexual Orientation Not on file Obstetrics History Last Filed Vital Signs Vital Sign Reading Time Taken Comments Blood Pressure 115/62 07/02/2024 11:30 AM EDT Pulse 61 07/02/2024 11:30 AM EDT Temperature 36.8 C (98.3 F) 07/02/2024 11:30 AM EDT Respiratory Rate - - Oxygen Saturation 98% 07/02/2024 11:30 AM EDT Inhaled Oxygen Concentration - - Weight 87.1 kg (192 lb) 07/02/2024 11:30 AM EDT Height 193 cm (6' 4 ) 07/02/2024 11:30 AM EDT Body Mass Index 23.37 07/02/2024 11:30 AM EDT Plan of Treatment Upcoming Encounters Date Type Department Care Team (Latest Contact Info) Description 10/08/2024 1:30 PM EDT Consult Orthopedic Surgery [facility] [address] [phone] Awa Stack NP [address] [address] 10/13/2024 7:30 AM EDT Hospital Encounter [facility] [place] [address] [place] [phone] Matteo Trivedi MD [address] [address] 10/13/2024 7:30 AM EDT - 10/13/2024 10:00 AM EDT Surgery [facility] OR [address] [place] [phone] Matteo Trivedi MD [address] [address] LEFT TOTAL KNEE ARTHROPLASTY [99801 (CPT )] 10/29/2024 1:30 PM EDT Office Visit Orthopedic Surgery - [place] [address] [phone] Awa Stack NP [address] [address] Scheduled Procedures Name Priority Associated Diagnoses Date/Ti me ARTHROPLASTY KNEE TOTAL Unilateral primary osteoarthritis, left knee 10/13/2024 7:30 AM EDT Health Maintenance Due Date [...] 03/20/2024 Social Influencers of Health Screening 03/20/2024 Influenza Vaccine (Season Ended) 2024 Hypertension/CHF/CAD Annual BMP Blood Test 06/16/2025 06/16/2024 RSV Immunization Adult Patie nts (1 - [...] Procedure Name Priority Date/Time Associated Diagnosis Comments MRSA PCR Routine 07/02/2024 11:41 AM EDT Pre-operative exam Unilateral primary osteoarthritis, left knee PROTHROMBIN TIME WITH INR Routine 06/20/2024 10:00 AM EDT Preoperative clearance Atrial enlargement, right HEMOGLOBIN A1C Routine 06/16/2024 8:37 AM EDT Preoperative clearance Encounter for screening for diabetes mellitus COMPLETE BLOOD COUNT Routine 06/16/2024 8:37 AM EDT Preoperative clearance BASIC METABOLIC PANEL Routine 06/16/2024 8:37 AM EDT Preoperative clearance HEPATIC FUNCTION PANEL Routine 06/16/2024 8:37 AM EDT Preoperative clearance ECG 12-LEAD Routine 05/22/2024 8:28 AM EDT Abnormal EKG Unilateral primary osteoarthritis, left knee Hypertension, unspecified type from Last 3 Months Results * MRSA molecular study (07/02/2024 11:41 AM EDT) [facility] MRSA Screen PCR Not Detected Not Detected LAB MICROBIOLOGY METHOD 07/02/2024 8:09 PM EDT [facility] Swab Both anterior nares / Unknown Non-blood Collection / Unknown 07/02/2024 11:41 AM EDT 07/02/2024 11:41 AM EDT Awa Stack NP LAB MICROBIOLOGY - GENE RAL ORDERABLES Final Result Performing Organization Address [facility]/ZIP Co de Phone Number [facility] [address] [place] [address], [place] [phone] * Prothrombin time with INR (06/20/2024 10:00 AM EDT) [facility] Protime 11.4 10.6 - 13.9 sec LAB COAGULATION METHOD 06/20/2024 12:05 PM EDT [facility] INR 0.9 LAB COAGULATION METHOD 06/20/2024 12:05 PM EDT [facility] Blood Venous blood specimen / Unknown Venipuncture / Unknown 06/20/2024 10:00 AM EDT 06/20/2024 10:00 AM EDT Awa Stack NP LAB BLOOD ORDERABLES Fi nal Result Performing Organization Address City/[facility]/ZIP Co de Phone Number [facility] [address] [place] [address], [place] [phone] * Complete blood count (06/16/2024 8:37 AM EDT) [facility] WBC 4.9 4.8 - 10.8 K/[facility] LAB HEMETOLOGY METHOD 06/16/2024 10:45 AM EDT [facility] RBC 4.70 4.50 - 5.50 M/[facility] LAB HEMETOLOGY METHOD 06/16/2024 10:45 AM EDT [facility] Hemoglobin 14.8 13.5 - 17.5 g/dL LAB HEMETOLOGY METHOD 06/16/2024 10:45 AM EDT [facility] Hematocrit 44.0 42.0 - 54.0 % LAB HEMETOLOGY METHOD 06/16/2024 10:45 AM [facility] MCV 94.2 79.0 - 98.0 [place] LAB HEMETOLOGY METHOD 06/16/2024 10:45 AM EDT [facility] MCH 31.7 27.0 - 32.0 pcg LAB HEMETOLOGY METHOD 06/16/2024 10:45 AM EDT [facility] MCHC 33.6 32.0 - 37.0 g/dL LAB HEMETOLOGY METHOD 06/16/2024 10:45 AM [facility] RDW 12.0 11.0 - 15.0 % LAB HEMETOLOGY METHOD 06/16/2024 10:45 AM [facility] Platelets 207 130 - 400 K/mcL LAB HEMETOLOGY METHOD 06/16/2024 10:45 AM T [facility] MPV 9.7 7.0 - 11.0 [place] LAB HEMETOLOGY METHOD 06/16/2024 10:45 AM [facility] NRBC 0.0 <1.0 % LAB HEMETOLOGY METHOD 06/16/2024 10:45 AM T [facility] NRBC Absolute 0.00 <0.10 K/mcL LAB HEMETOLOGY METHOD 06/16/2024 10:45 AM [facility] Blood Venous blood specimen / Unknown Venipuncture / Unknown 06/16/2024 8:37 AM EDT 06/16/2024 8:37 AM EDT us Awa Stack NP LAB BLOOD ORDERABLES Fi nal Result [facility] [address] [place] [address], * Hemoglobin A1c (06/16/2024 8:37 AM EDT) [facility] Hemoglobin A1C 5.8 <6.5 % LAB CHEMISTRY METHOD 06/16/2024 12:22 PM EDT [facility] Mean Bld Glu Estim. 120 mg/dL LAB CHEMISTRY METHOD 06/16/2024 12:22 PM EDT [facility] Blood Venous blood specimen / Unknown Venipuncture / Unknown 06/16/2024 8:37 AM EDT 06/16/2024 8:37 AM EDT Awa Stack NP LAB BLOOD ORDERABLES Fi nal Result Performing Organization Address [facility]/ZIP Co de Phone Number [facility] [address] [place] [address], * Hepatic function panel (06/16/2024 8:37 AM EDT) [facility] Total Protein 7.5 6.0 - 8.0 g/dL LAB CHEMISTRY METHOD 06/16/2024 12:04 PM EDT [facility] Albumin 4.1 3.2 - 5.0 g/dL LAB CHEMISTRY METHOD 06/16[facility]24 [facility] Total Bilirubin 1.3 0.0 - 1.4 mg/dL LAB CHEMISTRY METHOD 06/16/2024 12:04 PM EDT [facility] Bilirubin, Direct 0.3 0.0 - 0.3 mg/dL LAB CHEMISTRY METHOD 06/16/2024 12:04 PM [facility] Bilirubin, Indirect 1.0 0.0 - 1.1 mg/dL LAB CHEMISTRY METHOD 06/16/2024 12:04 PM EDT [facility] ALT (SGPT) 24 10 - 60 unit/L LAB CHEMISTRY METHOD 06/16/2024 12:04 PM [facility] AST (SGOT) 23 10 - 42 unit/L LAB CHEMISTRY METHOD 06/16/2024 12:04 PM [facility] Alkaline Phosphatase 70 42 - 121 unit/L LAB CHEMISTRY METHOD 06/16/2024 12:04 PM [facility] Blood Venous blood specimen / Unknown Venipuncture / Unknown 06/16/2024 8:37 AM EDT 06/16/2024 8:37 AM EDT Awa Stack NP LAB BLOOD ORDERABLES Fi nal Result [facility] [address] [place] [address], * (ABNORMAL) Basic metabolic panel (06/16/2024 8:37 AM EDT) Sodium 136 133 - 145 mmol/L LAB CHEMISTRY METHOD 06/16/2024 12:04 PM [facility] Potassium 4.8 3.5 - 5.5 mmol/L LAB CHEMISTRY METHOD 06/16/2024 12:04 PM [facility] Chloride 103 96 - 110 mmol/L LAB CHEMISTRY METHOD 06/16/2024 12:04 PM [facility] CO2 28 21 - 32 mmol/L LAB CHEMISTRY METHOD 06/16/2024 12:04 PM [facility] Anion Gap 5 3 - 11 LAB CHEMISTRY METHOD 06/16/2024 12:04 PM [facility] Glucose 125(H) 70 - 100 mg/dL LAB CHEMISTRY METHOD 06/16/2024 12:04 PM [facility] BUN 14 5 - 25 mg/dL LAB CHEMISTRY METHOD 06/16/2024 12:04 PM [facility] Creatinine 1.17 0.70 - 1.30 mg/dL LAB CHEMISTRY METHOD 06/16/2024 12:04 PM EDT [facility] eGFR 67 >=60 mL/min/1. 73m2 LAB CHEMISTRY METHOD 06/16/2024 12:04 PM EDT [facility] Comment:Calculation based on the Chronic Kidney Disease Epidemiology Collaboration (CKD-EPI) equation refit without adjustment for race. BUN/Creatinine Ratio 12.0 LAB CHEMISTRY METHOD 06/16/2024 12:04 PM EDT [facility] Calcium 9.6 8.5 - 10.5 mg/dL LAB CHEMISTRY METHOD 06/16/2024 12:04 PM EDT [facility] Blood Venous blood specimen / Unknown Venipuncture / Unknown 06/16/2024 8:37 AM EDT 06/16/2024 8:37 AM EDT Awa Stack NP LAB BLOOD ORDERABLES Fi nal Result Performing Organization Address City/State/[facility] Co de Phone Number [facility] [address] [place] [address], * ECG 12 lead (05/22/2024 8:28 AM EDT) Ventricular Rate ECG 80 BPM GEMUSE Atrial Rate 80 BPM GEMUSE P-R Interval 146 ms GEMUSE QRS Duration 88 ms GEMUSE Q-T Interval 378 ms GEMUSE QTc 435 ms GEMUSE P Wave [place] 89 degrees GEMUSE R [place] 34 degrees GEMUSE T [place] 48 degrees GEMUSE ECG Interpretation Normal sinus rhythm Right atrial enlargement Borderline ECG No previous ECGs available Confirmed by Dominick WERNER JAMES ([id number]) on 05/22/2024 11:11:33 AM GEMUSE 05/22/2024 8:28 AM EDT 05/22/2024 11:11 AM EDT Dav Werner MD ECG ORDERABLES Final Result GEMUSE from Last 3 Months Insurance [employer] MEDICARE ADVANTAGE Advance Directives Documents on File Type Date Recorded Patient Tech Ed Teacher Expl anation Power of Lacquer Dipping Machine Operator 07/02/2024 3:05 PM [facility] Care Teams Infection Control Specialist Relationship Specialty Start Date End Date Jason Mcfarlane [address], [address] [place] [address] PCP - General Family Medicine 05/06/24
== END 2024-08-07 09:34 | disposition home or self-care (01) ==
DX: I10 Essential (primary) hypertension (principal); E78.00 Pure hypercholesterolemia, unspecified; F10.29 Alcohol dependence with unspecified alcohol-induced disorder; M17.12 Unilateral primary osteoarthritis, left knee; R73.01 Impaired fasting glucose

== ENCOUNTER → 2024-08-07 08:46 | Outpatient (BNVA) | payer MEDICARE, SELFPAY | DX: I10 Essential (primary) hypertension (principal); E78.00 Pure hypercholesterolemia, unspecified; M17.12 Unilateral primary osteoarthritis, left knee; R73.01 Impaired fasting glucose; F10.29 Alcohol dependence with unspecified alcohol-induced disorder | CPT/HCPCS: 99212 ==

== ENCOUNTER 2024-09-06 07:51 | Outpatient (REF) | payer MEDICARE, SELFPAY ==
--- OUTSIDE RECORDS SUMMARY | 2024-09-06 07:53 | XMS_ITS | Patient Health Record ---
Author Organization [facility] Address [address] PRANAV Banerjee [address] Care Team Providers Care Showcase Trimmer Name Role Phone Estefania(inactive) Wilyl MCBRIDE Primary Care Provider U Hermilo Lezama Jr [phone] Reason For Referral No Information Problems Problem Type SNOMED Code ICD Code Onset Dates Problem Status W/U Status Risk Notes Problem [id number] Other specified pre-operative examination (Z01.818) Active confirmed Plan Of Treatment No Information Insurance Providers Payer Name Payer Address Payer Phone Subscriber Number Group Number Insured Name Patient Relationship to Insured Coverage Start Date Coverage End Date [facility] [address] [facility] [place] [phone] [id number] DANIELA MICHAUD Self - patient is the insured Medical (General) History Medical History History ICD Code hypertension Denies [place],DM,CVA,Lung disease,renal dise ase
--- OUTSIDE RECORDS SUMMARY | 2024-09-06 07:53 | XMS_ITS | Clinical Summary ---
Author Organization [facility] Address [address] [place] [address] Phone Care Team Providers Care Breast Trimmer Name Role Phone Vaishnavi Mcfarlanecaity HENRY Primary Care Provider Allergies No known active [...] palpitations. He has a echocardiogram scheduled at [facility] on 05 June we will get [...] ECG 12 lead Alcohol dependence, uncompli cated (CMS/[facility] V24, CMS/HCC V28) 05/14/2024 Primary osteoarthritis of right knee 05/14/2024 Encounters Date Type Department Care Team Description 07/23/2024 Telephone Orthopedic Surgery [facility] [address] [phone] Krystal Chester MA Surgery 07/16/2024 Telephone Orthopedic Surgery [facility] [address] [phone] Krystal Chester MA Surgery 07/02/2024 11:30 AM EDT Consult Orthopedic Surgery [facility] [address] [phone] Awa Stack NP Pre-operative exam (Primary Dx); Unilateral primary osteoarthritis, left knee 07/02/2024 Telephone Orthopedic Surgery [facility] [address] [phone] Christelle Buchanan, crt time 07/02/2024 Telephone Orthopedic Surgery [facility] [address] [phone] Christelle Buchanan, RN PT Initial Eval 06/18/2024 Telephone [facility] [address] [facility] [address] [place] [phone] Dav Hoyt MD Procedure (Clearance needed ) 06/12/2024 Telephone Orthopedic Surgery [facility] 250 175 [facility] [address] [place] [phone] Christelle Buchanan, BETTINA Labs Only 06/11/2024 Telephone Orthopedic Surgery [facility] [address] [phone] Christelle Buchanan, BETTINA 06/11/2024 Telephone Orthopedic Surgery [facility] [address] [phone] Christelle Buchanan, BETTINA 06/09/2024 Telephone Orthopedic Surgery [facility] [address] [phone] Christelle Buchanan, RN from Last 3 Months Surgical History Surgery [...] 10/08/2024 1:30 PM EDT Consult Orthopedic Surgery - [place] [address] [phone] Awa Stack NP [address] [address] 10/13/2024 7:30 AM EDT Hospital Encounter [facility] OR [address] [place] [phone] Matteo Trivedi MD [address] [address] 10/13/2024 7:30 AM EDT - 10/13/2024 10:00 AM EDT Surgery [facility] OR [address] [place] [phone] Matteo Trivedi MD [address] [address] LEFT TOTAL KNEE ARTHROPLASTY [12338 (CPT )] 10/29/2024 1:30 PM EDT Office Visit Orthopedic Surgery - [place] [address] [phone] Awa Stack NP [address] [address] Scheduled Procedures Name Priority Associated Diagnoses Date/Ti [...] Vaccines (1 of 2) 2004 COVID-19 Vaccine (1 - 2023-2 5 season) 2023 Depression Screening 02/20/2024 Cholesterol Screening (Lipid Panel) 03/20/2024 Colorectal Cancer Screening: Colonoscopy 03/20/2024 Falls Risk Assessment 03/20/2024 Hepatitis C Screening 03/20/2024 Medicare Annual Wellness Visit 03/20/2024 Social Influencers of Health Screening 03/20/2024 Influenza Vaccine (#1) 2024 Hypertension/CHF/CAD Annual BMP Blood Test 06/16/2025 [...] Routine 06/16/2024 8:37 AM EDT Preoperative clearance from Last 3 Months Results * MRSA molecular study (07/02/2024 11:41 AM EDT) [facility] MRSA Screen PCR Not Detected Not Detected LAB MICROBIOLOGY METHOD 07/02/2024 8:09 PM EDT [facility] Swab Both anterior nares / Unknown Non-blood Collection / Unknown 07/02/2024 11:41 AM EDT 07/02/2024 11:41 AM EDT Awa Stack NP LAB MICROBIOLOGY - GENE RAL ORDERABLES Final Result [facility] [address] [place] [address], [place] [phone] * Prothrombin time with INR (06/20/2024 10:00 AM EDT) [facility] Protime 11.4 10.6 - 13.9 sec LAB COAGULATION METHOD 06/20/2024 12:05 PM EDT [facility] INR 0.9 LAB COAGULATION METHOD 06/20/2024 12:05 PM EDT [facility] Blood Venous blood specimen / Unknown Venipuncture / Unknown 06/20/2024 10:00 AM EDT 06/20/2024 10:00 AM EDT us Awa Stack NP LAB BLOOD ORDERABLES Fi nal Result [facility] [address] [place] [address], [place] [phone] * Complete blood count (06/16/2024 8:37 AM EDT) [facility] WBC 4.9 4.8 - 10.8 K/mcL LAB HEMETOLOGY METHOD 06/16/2024 10:45 AM [facility] RBC 4.70 4.50 - 5.50 M/mcL LAB HEMETOLOGY METHOD 06/16/2024 10:45 AM [facility] Hemoglobin 14.8 13.5 - 17.5 g/dL LAB HEMETOLOGY METHOD 06/16/2024 10:45 AM [facility] Hematocrit 44.0 42.0 - 54.0 % LAB HEMETOLOGY METHOD 06/16/2024 10:45 AM [facility] MCV 94.2 79.0 - 98.0 FL LAB HEMETOLOGY METHOD 06/16/2024 10:45 AM [facility] MCH 31.7 27.0 - 32.0 pcg LAB HEMETOLOGY METHOD 06/16/2024 10:45 AM [facility] MCHC 33.6 32.0 - 37.0 g/dL LAB HEMETOLOGY METHOD 06/16/2024 10:45 AM [facility] RDW 12.0 11.0 - 15.0 % LAB HEMETOLOGY METHOD 06/16/2024 10:45 AM [facility] Platelets 207 130 - 400 K/mcL LAB HEMETOLOGY METHOD 06/16/2024 10:45 AM [facility] MPV 9.7 7.0 - 11.0 FL LAB HEMETOLOGY METHOD 06/16/2024 10:45 AM [facility] NRBC 0.0 <1.0 % LAB HEMETOLOGY METHOD 06/16/2024 10:45 AM [facility] NRBC Absolute 0.00 <0.10 K/[facility] LAB HEMETOLOGY METHOD 06/16/2024 10:45 AM EDT [facility] Blood Venous blood specimen / Unknown Venipuncture / Unknown 06/16/2024 8:37 AM EDT 06/16/2024 8:37 AM EDT Awa Stack NP LAB BLOOD ORDERABLES Fi nal Result Performing Organization Address [facility]/ZIP Co de Phone Number [facility] [address] [place] [address], [place] [phone] * Hemoglobin A1c (06/16/2024 8:37 AM EDT) Hemoglobin A1C 5.8 <6.5 % LAB CHEMISTRY METHOD 06/16/2024 12:22 PM EDT [facility] Mean Bld Glu Estim. 120 mg/dL LAB CHEMISTRY METHOD 06/16/2024 12:22 PM EDT [facility] Blood Venous blood specimen / Unknown Venipuncture / Unknown 06/16/2024 8:37 AM EDT 06/16/2024 8:37 AM EDT Awa Stack NP LAB BLOOD ORDERABLES Fi nal Result Performing Organization Address [facility] de Phone Number [facility] [address] [place] [address], [place] [phone] * Hepatic function panel (06/16/2024 8:37 AM EDT) Total Protein 7.5 6.0 - 8.0 g/dL LAB CHEMISTRY METHOD 06/16/2024 12:04 PM EDT [facility] Albumin 4.1 3.2 - 5.0 g/dL LAB CHEMISTRY METHOD 06/16/2024 12:04 PM EDT [facility] Total Bilirubin 1.3 0.0 - 1.4 mg/dL LAB CHEMISTRY METHOD 06/16/2024 12:04 PM T [facility] Bilirubin, Direct 0.3 0.0 - 0.3 mg/dL LAB CHEMISTRY METHOD 06/16/2024 12:04 PM [facility] Bilirubin, Indirect 1.0 0.0 - 1.1 mg/dL LAB CHEMISTRY METHOD 06/16/2024 12:04 PM [facility] ALT (SGPT) 24 10 - 60 unit/L LAB CHEMISTRY METHOD 06/16/2024 12:04 PM [facility] AST (SGOT) 23 10 - 42 unit/L LAB CHEMISTRY METHOD 06/16/2024 12:04 PM [facility] Alkaline Phosphatase 70 42 - 121 unit/L LAB CHEMISTRY METHOD 06/16/2024 12:04 PM [facility] Blood Venous blood specimen / Unknown Venipuncture / Unknown 06/16/2024 8:37 AM EDT 06/16/2024 8:37 AM EDT Awa Stack NP LAB BLOOD ORDERABLES Fi nal Result [facility] [address] [place] [address], * (ABNORMAL) Basic metabolic panel (06/16/2024 8:37 AM EDT) Sodium 136 133 - 145 mmol/L LAB CHEMISTRY METHOD 06/16/2024 12:04 PM [facility] Potassium 4.8 3.5 - 5.5 mmol/L LAB CHEMISTRY METHOD 06/16/2024 12:04 PM [facility] Chloride 103 96 - 110 mmol/L LAB CHEMISTRY METHOD 06/16/2024 12:04 PM [facility] CO2 28 21 - 32 mmol/L LAB CHEMISTRY METHOD 06/16/2024 12:04 PM [facility] Anion Gap 5 3 - 11 LAB CHEMISTRY METHOD 06/16/2024 12:04 PM [facility] Glucose 125(H) 70 - 100 mg/dL LAB CHEMISTRY METHOD 06/16/2024 12:04 PM [facility] BUN 14 5 - 25 mg/dL LAB CHEMISTRY METHOD 06/16/2024 12:04 PM [facility] Creatinine 1.17 0.70 - 1.30 mg/dL LAB CHEMISTRY METHOD 06/16/2024 12:04 PM [facility] eGFR 67 >=60 mL/min/1. 73m2 LAB CHEMISTRY METHOD 06/16/2024 12:04 PM [facility] Comment:Calculation based on the Chronic Kidney Disease Epidemiology Collaboration (CKD-EPI) equation refit without adjustment for race. BUN/Creatinine Ratio 12.0 LAB CHEMISTRY METHOD 06/16/2024 12:04 PM [facility] Calcium 9.6 8.5 - 10.5 mg/dL LAB CHEMISTRY METHOD 06/16/2024 12:04 PM [facility] Blood Venous blood specimen / Unknown Venipuncture / Unknown 06/16/2024 8:37 AM EDT 06/16/2024 8:37 AM EDT Awa Stack MAT INSPECTOR LAB BLOOD ORDERABLES Fi nal Result [facility] [address] [place] [address], from Last 3 Months Insurance [employer] MED[employer] Advance Directives Documents on File Type Date Recorded Patient Rodeo Performer Expl anation Power of Fire Extinguisher Repairer Inspector 07/02/2024 3:05 PM [facility] PROXY Care Teams Breast Trimmer Relationship Specialty Start Date End Date Jason Mcfarlane FNP [address] [place] [id number] PCP - General Family Medicine 05/06/24
[2024-09-06 08:01] LABS: MANUAL DIFF FLAG NO
[2024-09-06 08:16] LABS: Hematocrit 37.9 % (42.0-52.0); Hemoglobin 13.5 g/dl (14.0-18.0); Imm Gran Abs Auto 0.02 X10*3/uL (0.00-0.03); Imm Gran Pct Auto 0.4 % (0.0-0.4); Lymphocytes Absolute Auto 1.8 X10*3/uL (1.2-4.9); Mean Corpuscular HGB Conc 35.6 g/dl (31.0-36.0); Mean Corpuscular Hemoglobin 32.3 pg (27.0-33.0); Mean Corpuscular Volume 90.7 fL (80.0-98.0); NRBC Abs Auto 0.000 X10*3/uL (0.0-0.012); NRBC Pct Auto 0.0 /100WBC (0.0-0.2); Platelet Count 180 X10*3/uL (160-400); Red Blood Count 4.18 X10*6/uL (4.60-5.80); White Blood Count 4.6 X10*3/uL (4.8-10.8)
[2024-09-06 08:21] LABS: Hemoglobin A1C 134.7710 umol/L; Total Hemoglobin (HGBA1C) 3624.3071 umol/L
[2024-09-06 08:38] LABS: Appearance Urine Clear; Glucose Urine UA Negative (Negative); PH 6.0 (5.0-9.0); Specific Gravity - Urine 1.015 (1.005-1.025)
[2024-09-06 09:20] LABS: Alanine Aminotransferase 32 U/L (0-40); Albumin Level 4.5 g/dL (3.5-5.0); Alkaline Phosphatase 60 U/L (39-117); Anion Gap 10 (12-20); Aspartate Amino Transferase 31 U/L (5-37); Blood Urea Nitrogen 17 mg/dL (9-16); Calcium 9.1 mg/dL (8.4-10.2); Carbon Dioxide 28 mmol/L (22-29); Chloride 106 mmol/L (96-108); Cholesterol 151 mg/dL (<200); Estimated Glomerular Filt Rate > 60; HDL Cholesterol 51 mg/dL (>40); Potassium 4.6 mmol/L (3.3-5.1); Sodium 139 mmol/L (135-145); Total Protein 7.1 g/dL (6.5-8.0); Triglycerides 196 mg/dL (<150)
== END 2024-09-06 07:52 | disposition home or self-care (01) ==
LOC: HO.LAB 07:51
DX: E78.00 Pure hypercholesterolemia, unspecified (principal); F10.29 Alcohol dependence with unspecified alcohol-induced disorder; I10 Essential (primary) hypertension
CPT/HCPCS: 36415; 80053; 80061; 81003; 83036; 84443; 85025

== ENCOUNTER 2024-09-09 08:52 | Outpatient (AMB) | payer MEDICARE, SELFPAY ==
--- NOTE | 2024-09-09 09:02 | A.OFFPC_ITS ---
Vital Signs 09/09/24 09:03 Height 6 ft 2 in Weight 188 lb 8 oz BMI 24.2 BP 128/72 Blood Pressure Location Lt brachial Position Sitting Respiration 16 Pulse 76 Pulse Source Auscultation Temp 98.9 F Temp Source Oral Pulse Oximetry (%) 97 Oxygen Delivery Method Room Air Intake Visit Reasons: DR Shikha quigley knee replacement 10/13 Curriculum Development Manager Required: No Accompanied by: Self / Same As Patient Allergies No Known Allergies (No Known Allergies*) Allergy (Verified 09/09/24 09:17) Medication List - Last Reconciled 09/09/24 by JOSELINE Minor atorvastatin 10 mg PO BEDTIME 90 days lisinopril 10 mg PO DAILY Tobacco use date assessed: 09/09/24 Fall risk assessment: No Falls in past year Last assessed Fall Risk: 09/09/24 Dental Screening Dental Screen Date: 09/09/24 Did you have a dental visit in the last 12 months?: Yes Did you have a dental problem in the last 6 months where you did not have access to dental care?: No Was dental information given to patient?: Patient has dentist HPI DR Shikha quigley knee replacement 10/13 HPI Details The patient is a 68-year-old male who was presenting for preop clearance for left knee replacement Surgery: Left knee replacement. The patient has a history of osteoarthritis of the left knee for which he received steroid injection x1. The patient continued to have decreased range of motion and pain. Date: 10/13/2024 Surgery/location: Dr. Matteo Trivedi at [facility] Anesthesia: General. Patient denies any history of issues with anesthesia The patient denies any history of perioperative hypothermia or blood clotting disorder. The patient is not on any anticoagulation or disease modifying drugs. Medical history significant for hypertension, alcohol dependence, hypercholesterolemia. Patient had an EKG done on 04/24/2024 that showed atrial enlargement. The patient was referred to Cardiology. Per patient, his remote sensing analyst reports that he is not concerned about his surgery; he is more concerned about his rehabilitation that will put added stress on his heart and the possibility of the patient developing A Fib post surgery. The patient had an echocardiogram completed on 06/05/24. Per patient, the remote sensing analyst we will make a final decision after his echo. Patient also had an appointment with his dentist as part of the request from his surgeon. Turns out that the patient surgery was postponed for him to have dental work done first. The patient reports that he was cleared but his dentist, however, he also needs to be cleared by cardiology. The patient has labs done on 09/06/24 that shows a drop in H&H from 16.4/13.5 and 46.3/37.9 without any evidence of bleeding. The rest of the patient labs are normal. The patient CBC was repeated on 09/12/24 with noted improvement in H&H 14.4/40.7. signifying that the patient is not having any active bleed. HTN: THIS IS MORE CONTROLLED NOW. BP 128/70 in office; he is currently on lisinopril 10 mg daily and he is working on decreasing his caffeine intake. Reinforced low salt diet. HLD: The patient triglycerides increased from 92-196, while LDL decreased from 146-61; HDL 51; total cholesterol decreased from 221 to 151. Significant improvement noted. Continue atorvastatin 10 mg daily. Encouraged the patient to decrease sugary foods and beverages; white bread, pasta, rice, alcohol, and high fat meats and processed meats to decrease triglycerides. Right heart enlargement: Lungs clear, denies sob. The patient was granted clearance from his remote sensing analyst. [facility] Medical History HTN (hypertension) Surgical History Hx of hernia repair Family History Mother Alzheimer dementia Father Heart attack Daughter No problems noted. Daughter No problems noted. Social History Housing: House Patient Tobacco Use Status: Never used Tobacco e-Cigarette/Vaping Use: Never Used Substance Use Type: Marijuana service: No Current occupational status: retired Current occupational exposures/hazards: No Cognitive needs: No Hearing needs: No Vision needs: No Questionnaire Thrive Questionnaire Date Thrive assessed: 09/09/24 I am a: Patient What is your living situation today?: I have a steady place to live Within the past 12 months, did the food you bought not last and you didn't have the money to get more?: Never true Within the past 12 months, did you worry whether your food would run out before you got money to buy more?: Never true Do you have trouble paying for medicines?: No Do you have trouble getting transportation to medical appointments?: No Do you have trouble paying your heating and electricity bill?: No Do you have trouble taking care of your child, family member or friend?: No Do you have trouble with day-to-day activities such as bathing, preparing meals, shopping, managing finances, etc.?: No Are you currently unemployed and looking for a job?: No Are you interested in more education?: No Please select the resources that you would like help with: None Currently or been in a relationship where the following occur: I choose not to answer THRIVE Score: 0 CORDELIA-7 AMB Questionnaire CORDELIA-7 Date CORDELIA - 7 assessed: 09/09/24 Source: Developed by Drs. Jose Abdul, Belle Bloom, Jah Francis and colleagues, with an educational carlos from [employer]. Review of Systems Const Denies headache(s) Eyes Denies loss of vision ENT Denies vertigo, Denies dizziness, Denies headache(s) and Denies sore throat Card Denies chest pain, Denies leg edema and Denies lightheadedness Resp Denies cough, Denies hemoptysis and Denies wheezing GI Denies abdominal pain, Denies melena, Denies constipation, Denies diarrhea and Denies vomiting Denies dysuria, Denies urinary frequency and Denies urinary urgency Musc Reports arthralgias (left knee pain), Reports joint swelling (mild swelling in left knee), Reports limited range of motion (decreased ROM in left knee), Denies numbness and Denies tingling Neuro Denies Abnormal speech present, Denies behavioral changes, Denies vertigo, Denies dizziness, Denies headache(s), Denies loss of vision, Denies memory loss, Denies numbness and Denies tingling Psych Denies anxiety, Denies behavioral changes, Denies depression, Denies memory loss and Denies panic attacks Titus/Lymph Denies easy bleeding and Denies easy bruising Aller/Immun Denies wheezing Physical exam (Primary Care) Vital Signs: Last Vital Signs BP 128/72 09/09/24 09:03 Oxygen Delivery Method Room Air 09/09/24 09:03 BMI result Body Mass Index 24.2 Tobacco/Smoking Status: Tobacco use Status Tobacco use date assessed 09/09/24 09/09/24 09:07 Patient Tobacco Use Status Never used Tobacco 09/09/24 09:07 e-Cigarette/Vaping Use Never Used 09/09/24 09:07 Thrive Assessment: Date of Thrive Assessment Date Thrive assessed 09/09/24 09/09/24 09:07 Currently or been in a relationship where the following occur: I choose not to answer Const General: healthy appearing, no acute distress, alert and awake Nutritional Appearance: well nourished Orientation/consciousness: oriented to person, oriented to place and oriented to time HENMT Ears: TM's normal bilaterally General nose exam: Normal nasal mucous membranes and turbinates present Eyes Conjunctivae: conjunctivae normal Sclerae: sclerae normal Pupils: Equal, round and reactive pupils present Neck Neck: Yes no lymphadenopathy and Yes no JVD Thyroid: Thyroid normal Carotids: no bruits Resp Effort & Inspection: normal respiratory effort and not tachypneic Auscultation: no crackles, no rales, no rhonchi and no wheezes Cardio Rate: regular rate Rhythm: regular rhythm Heart sounds: no murmurs and normal S1 and S2 GI Palpation (GI): Soft to palpation, nontender, no hepatomegaly and no splenomegaly Auscultation: normal bowel sounds General: Yes no CVA tenderness Back/Spine/Pelvis Back: no CVA tenderness Skin General skin exam: no rashes or lesions noted and dry skin Neuro General: oriented to person, oriented to place and oriented to time Cranial nerves: Yes Equal, round and reactive pupils present Speech: No Abnormal speech present Gait exam (Neuro): Normal gait present Motor exam (neuro): no tremor noted Extrem Right upper extremity: full ROM Left upper extremity: full ROM Right lower extremity: full ROM; no edema Left lower extremity: full ROM; no edema Psych Mental Status: mental status grossly normal Speech and movement: Normal speech and movement present Affect: normal affect Attitude: cooperative Thought process: Normal thought process present Results Reviewed Results Reviewed: Laboratory Tests 09/06/24 09/06/24 07:57 08:00 WBC 4.6 L RBC 4.18 L Hgb 13.5 L Hct 37.9 L MCV 90.7 MCH 32.3 MCHC 35.6 RDW 12.3 Plt Count 180 MPV 9.1 L Immature Gran % (Auto) 0.4 Neut % (Auto) 46.8 Lymph % (Auto) 38.1 Tate % (Auto) 10.6 Eos % (Auto) 3.5 Baso % (Auto) 0.6 Lymph # (Auto) 1.8 Sodium 139 Potassium 4.6 Chloride 106 Carbon Dioxide 28 Anion Gap 10 L BUN 17 H Creatinine 1.18 Estimated GFR > 60 Fasting Glucose 118 H Estimat Average Glucose 114 Hemoglobin A1c % 5.6 Calcium 9.1 Total Bilirubin 0.7 AST 31 ALT 32 Alkaline Phosphatase 60 Total Protein 7.1 Albumin 4.5 Triglycerides 196 H Cholesterol 151 LDL Cholesterol, Calc 61 HDL Cholesterol 51 TSH 1.96 Urine Color Yellow Urine Appearance Clear Urine pH 6.0 Ur Specific Kingsley 1.015 Urine Protein Negative Urine Glucose (UA) Negative Urine Ketones Negative Urine Blood Negative Urine Nitrite Negative Ur Leukocyte Esterase Negative Laboratory Tests 09/12/24 07:12 WBC 5.8 RBC 4.40 L Hgb 14.4 Hct 40.7 L MCV 92.5 MCH 32.7 MCHC 35.4 RDW 12.3 Plt Count 181 Vitamin B12 393 Folate 10.2 Coding Level of Care Code Est Pt Level 4 (37706) Diagnoses Preoperative clearance Z01.818 Arthritis of left knee M17.12 Anemia, unspecified type D64.9 Anemia type: unspecified type Abnormal fasting glucose R73.01 Pure hypercholesterolemia with target low density lipoprotein (LDL) cholesterol less than 130 mg/dL E78.00 Right atrial enlargement I51.7 Hypertension, unspecified type I10 Hypertension type: unspecified Alcohol dependence with unspecified alcohol-induced disorder F10.29 Substance use status: unspecified alcohol-induced disorder Time Spent (min) 39 Assessment & Plan Assessment & Plan (1) Preoperative clearance: Code(s): Z01.818 - Encounter for other preprocedural examination Category: Medical Plan: Regarding preop clearance, the patient is at acceptable risk for proposed surgery. Reviewed with the patient that no surgery is completely free of risk and that this examination is to assist the surgeon in reviewing informed consent. (2) Arthritis of left knee: Code(s): M17.12 - Unilateral primary osteoarthritis, left knee Category: Medical Plan: Pending knee surgery-was held off due to tooth extraction/dental work was given attentive date of October 13 (3) Anemia: Code(s): D64.9 - Anemia, unspecified Category: Medical Qualifiers: Anemia type: unspecified type Qualified Code(s): D64.9 - Anemia, unspecified Plan: The patient has labs done on 09/06/24 that shows a drop in H&H from 16.4/13.5 and 46.3/37.9 without any evidence of bleeding. The rest of the patient labs are normal. The patient CBC was repeated on 09/12/24 with noted improvement in H&H 14.4/40.7. signifying that the patient is not having any active bleed and his CBC is stable. We will continue to monitor (4) Abnormal fasting glucose: Code(s): R73.01 - Impaired fasting glucose Category: Medical Plan: Fasting glucose 118. A1c 5.6% on 09/06/2024 Reinforced low sugar/carbohydrate diet We will continue to monitor fasting glucose and A1c (5) Pure hypercholesterolemia with target low density lipoprotein (LDL) cholesterol less than 130 mg/dL: Code(s): E78.00 - Pure hypercholesterolemia, unspecified Category: Medical Plan: Triglycerides 196, total cholesterol 151, LDL 61, HDL 51 Reinforced low-cholesterol diet and activity as tolerated Continue atorvastatin 10 mg at bedtime We will continue to monitor lipids (6) Right atrial enlargement: Code(s): I51.7 - Cardiomegaly Category: Medical Plan: EKG done showed right atrial enlargement. Patient was evaluated by Cardiology, per patient, his remote sensing analyst explained that he has a small tear in the right atrial. Per patient, his remote sensing analyst is not worried about to surgery but he is more worried about rehabilitation after the procedure. The patient has an echo pending on 06/05/2024 showed LV EF 60-65% and a grade 1 diastolic dysfunction. Mildly dilated ascending aorta at 4.1 cm a normal right ventricle function. The patient was cleared by Cardiology to proceed with surgery. (7) HTN (hypertension): Code(s): I10 - Essential (primary) hypertension Category: Medical Qualifiers: Hypertension type: unspecified Qualified Code(s): I10 - Essential (primary) hypertension Plan: Patient blood pressure was 128/72 Reinforced low-salt diet Continue lisinopril 10 mg daily (8) Alcohol dependence: Code(s): F10.20 - Alcohol dependence, uncomplicated Category: Medical Qualifiers: Substance use status: unspecified alcohol-induced disorder Qualified Code(s): F10.29 - Alcohol dependence with unspecified alcohol-induced disorder Plan: Encouraged cessation or decreasing the number and frequency of use Orders: Orders Complete Blood Count Auto Diff 2 Months E78.00 - Pure hypercholesterolemia, unspecified, F10.29 - Alcohol dependence with unspecified alcohol-induced disorder, I10 - Essential (primary) hypertension, I51.7 - Cardiomegaly, R73.01 - Impaired fasting glucose TSH reflex Free T4 2 Months E78.00 - Pure hypercholesterolemia, unspecified, F10.29 - Alcohol dependence with unspecified alcohol-induced disorder, I10 - Essential (primary) hypertension, I51.7 - Cardiomegaly, R73.01 - Impaired fasting glucose Vitamin B12 and Folate 09/12/ D64.9 - Anemia, unspecified, F10.29 - Alcohol dependence with unspecified alcohol-induced disorder Vitamin D 25-OH Total 2 Months E78.00 - Pure hypercholesterolemia, unspecified, F10.29 - Alcohol dependence with unspecified alcohol-induced disorder, I10 - Essential (primary) hypertension, I51.7 - Cardiomegaly, R73.01 - Impaired fasti ng glucose Vitamin B12 and Folate 2 Months E78.00 - Pure hypercholesterolemia, unspecified, F10.29 - Alcohol dependence with unspecified alcohol-induced disorder, I10 - Essential (primary) hypertension, I51.7 - Cardiomegaly, R73.01 - Impaired fasting glucose IRON PROFILE 2 Months E78.00 - Pure hypercholesterolemia, unspecified, F10.29 - Alcohol dependence with unspecified alcohol-induced disorder, I10 - Essential (primary) hypertension, I51.7 - Cardiomegaly, R73.01 - Impaired fasting glucose Comprehensive [place]. Panel Fast 2 Months E78.00 - Pure hypercholesterolemia, unspecified, F10.29 - Alcohol dependence with unspecified alcohol-induced disorder, I10 - Essential (primary) hypertension, I51.7 - Cardiomegaly, R73.01 - Impaired fasting glucose Lipid Panel 2 Months E78.00 - Pure hypercholesterolemia, unspecified, F10.29 - Alcohol dependence with unspecified alcohol-induced disorder, I10 - Essential (primary) hypertension, I51.7 - Cardiomegaly, R73.01 - Impaired fasting glucose UA CC w/rflx Micro + Cult 2 Months E78.00 - Pure hypercholesterolemia, unsp ecified, F10.29 - Alcohol dependence with unspecified alcohol-induced disorder, I10 - Essential (primary) hypertension, I51.7 - Cardiomegaly, R73.01 - Impaired fasting glucose Complete Blood Count Auto Diff 09/12/24 D64.9 - Anemia, unspecified, F10.29 - Alcohol dependence with unspecified alcohol-induced disorder
[2024-09-09 09:03] VITALS: BP 128/72; PULSE 76; RESP 16; TEMP 37.2; O2SAT 97; BMI 24.2
--- OUTSIDE RECORDS SUMMARY | 2024-09-09 09:16 | XMS_ITS | Patient Health Record ---
Author Organization [facility] Address [address] PRANA[place] Banerjee [address] Care Team Providers Care Rig Site Engineer Name Role Phone Estefania(inactive) Willy MCBRIDE Primary Care Provider U Hermilo Lezama Jr Reason For Referral No Information Problems Problem Type SNOMED Code ICD Code Onset Dates Problem Status W/U Status Risk Notes Problem [id number] Other specified pre-operative examination (Z01.818) Active confirmed Plan Of Treatment No Information Insurance Providers Payer Name Payer Address Payer Phone Subscriber Number Group Number Insured Name Patient Relationship to Insured Coverage Start Date Coverage End Date [facility] [address] [place] [phone] [id number] DANIELA MICHAUD Self - patient is the insured Medical (General) History Medical History History ICD Code hypertension Denies [place],DM,CVA,Lung disease,renal dise ase
--- OUTSIDE RECORDS SUMMARY | 2024-09-09 09:16 | XMS_ITS | Clinical Summary ---
Author Organization [facility] Address [address] [place] [address] Phone Care Team Providers Care Stamping Operator Name Role Phone Vaishnavi Mcfarlaneurice Jadon HENRY Primary Care Provider Allergies No known [...] palpitations. He has a echocardiogram scheduled at [facility] on 05 June we will [...] ECG 12 lead Alcohol dependence, uncompli cated (CMS/[facility]ER[facility] V24, CMS/HCC V28) 05/14/2024 Primary osteoarthritis of right knee 05/14/2024 Encounters Date Type Department Care Team Description 07/23/2024 Telephone Orthopedic Surgery [facility] [address] [phone] Krystal Chester MA Surgery 07/16/2024 Telephone Orthopedic Surgery [facility] [address] [phone] Krystal Chester MA Surgery 07/02/2024 11:30 AM EDT Consult Orthopedic Surgery [facility] [address] [phone] Awa Stack NP Pre-operative exam (Primary Dx); Unilateral primary osteoarthritis, left knee 07/02/2024 Telephone Orthopedic Surgery [facility] [address] [phone] Christelle Buchanan, spa concierge time 07/02/2024 Telephone Orthopedic Surgery [facility] 250 175 [facility] 250 [phone] Christelle Buchanan, RN PT Initial Eval 06/18/2024 Telephone [facility] [address] 300 [facility] 154 [phone] Dav Hoyt MD Procedure (Clearance needed ) 06/12/2024 Telephone Orthopedic Surgery [facility] 250 175 [facility] 250 [phone] Christelle Buchanan, BETTINA Labs Only 06/11/2024 [place] Orthopedic Surgery [facility] [address] [phone] Christelle Buchanan RN 06/11/2024 Telephone Orthopedic Surgery [facility] [address] [phone] Christelle uBchanan, BETTINA from Last 3 Months Surgical History Surgery [...] 10/08/2024 1:30 PM EDT Consult Orthopedic Surgery [facility] [address] [phone] Awa Stack NP [address] [address] 10/13/2024 7:30 AM EDT Hospital Encounter [facility] Main OR [address] [place] [phone] Matteo Trivedi MD [address] [address] 10/13/2024 7:30 AM EDT - 10/13/2024 10:00 AM EDT Surgery [facility] Main OR [address] [place] [phone] Matteo Trivedi MD [address] [address] LEFT TOTAL KNEE ARTHROPLASTY [62307 (CPT )] 10/29/2024 1:30 PM EDT Office Visit Orthopedic Surgery [place] [address] [phone] Awa Stack NP [address] [address] Scheduled Procedures Name Priority Associated Diagnoses Date/Ti [...] MRSA molecular study (07/02/2024 11:41 AM EDT) [facility] MRSA Screen PCR Not Detected Not Detected LAB MICROBIOLOGY METHOD 07/02/2024 8:09 PM EDT [facility] Swab Both anterior nares / Unknown Non-blood Collection / Unknown 07/02/2024 11:41 AM EDT 07/02/2024 11:41 AM EDT Awa Stack NP LAB MICROBIOLOGY - GENE RAL ORDERABLES Final Result Performing Organization Address City/[facility]/ZIP Co de Phone Number [facility] [address] [place] [address], [place] [phone] * Prothrombin time with INR (06/20/2024 10:00 AM EDT) [facility] Protime 11.4 10.6 - 13.9 sec LAB COAGULATION METHOD 06/20/2024 12:05 PM EDT [facility] INR 0.9 LAB COAGULATION METHOD 06/20/2024 12:05 PM EDT [facility] Blood Venous blood specimen / Unknown Venipuncture / Unknown 06/20/2024 10:00 AM EDT 06/20/2024 10:00 AM EDT us Awa Stack NP LAB BLOOD ORDERABLES Fi nal Result [facility] [address] [place] [address], [place] [phone] * Complete blood count (06/16/2024 8:37 AM EDT) WBC 4.9 4.8 - 10.8 K/[facility] LAB HEMETOLOGY METHOD 06/16/2024 10:45 AM [facility] RBC 4.70 4.50 - 5.50 M/[facility] LAB HEMETOLOGY METHOD 06/16/2024 10:45 AM [facility] Hemoglobin 14.8 13.5 - 17.5 g/dL LAB HEMETOLOGY METHOD 06/16/2024 10:45 AM [facility] Hematocrit 44.0 42.0 - 54.0 % LAB HEMETOLOGY METHOD 06/16/2024 10:45 AM [facility] MCV 94.2 79.0 - 98.0 FL LAB HEMETOLOGY METHOD 06/16/2024 10:45 AM [facility] MCH 31.7 27.0 - 32.0 pcg LAB HEMETOLOGY METHOD 06/16/2024 10:45 AM [facility] MCHC 33.6 32.0 - 37.0 g/dL LAB HEMETOLOGY METHOD 06/16/2024 10:45 AM [facility] RDW 12.0 11.0 - 15.0 % LAB HEMETOLOGY METHOD 06/16/2024 10:45 AM [facility] Platelets 207 130 - 400 K/[facility] HEMETOLOGY METHOD 06/16/2024 10:45 AM [facility] MPV 9.7 7.0 - 11.0 FL LAB HEMETOLOGY METHOD 06/16/2024 10:45 AM [facility] NRBC 0.0 <1.0 % LAB HEMETOLOGY METHOD 06/16/2024 10:45 AM [facility] NRBC Absolute 0.00 <0.10 K/[facility] HEMETOLOGY METHOD 06/16/2024 10:45 AM [facility] Blood Venous blood specimen / Unknown Venipuncture / Unknown 06/16/2024 8:37 AM EDT 06/16/2024 8:37 AM EDT Awa Stack SLIDER ASSEMBLER LAB BLOOD ORDERABLES Fi nal Result Performing Organization Address [facility]/ZIP Co de Phone Number [facility] [address] [place] [address], [place] [phone] * Hemoglobin A1c (06/16/2024 8:37 AM EDT) [facility] Hemoglobin A1C 5.8 <6.5 % LAB CHEMISTRY METHOD 06/16/2024 12:22 PM EDT [facility] Mean Bld Glu Estim. 120 mg/dL LAB CHEMISTRY METHOD 06/16/2024 12:22 PM EDT [facility] Blood Venous blood specimen / Unknown Venipuncture / Unknown 06/16/2024 8:37 AM EDT 06/16/2024 8:37 AM EDT us Awa Stack NP LAB BLOOD ORDERABLES Fi nal Result Performing Organization Address [facility]/ZIP Hi de Phone Number [facility] [address] [place] [address], [place] [phone] * Hepatic function panel (06/16/2024 8:37 AM EDT) [facility] Total Protein 7.5 6.0 - 8.0 g/dL LAB CHEMISTRY METHOD 06/16/2024 12:04 PM EDT [facility] Albumin 4.1 3.2 - 5.0 g/dL LAB CHEMISTRY METHOD 06/16/2024 12:04 PM EDT [facility] Total Bilirubin 1.3 0.0 - 1.4 mg/dL LAB CHEMISTRY METHOD 06/16/2024 12:04 PM EDT [facility] Bilirubin, Direct 0.3 0.0 - 0.3 mg/dL LAB CHEMISTRY METHOD 06/16/2024 12:04 PM [facility] Bilirubin, Indirect 1.0 0.0 - 1.1 mg/dL LAB CHEMISTRY METHOD 06/16/2024 12:04 PM [facility] ALT (SGPT) 24 10 - 60 unit/L LAB CHEMISTRY METHOD 06/16/2024 12:04 PM [facility] AST (SGOT) 23 10 - 42 unit/L LAB CHEMISTRY METHOD 06/16/2024 12:04 PM [facility] Alkaline Phosphatase 70 42 - 121 unit/L LAB CHEMISTRY METHOD 06/16/2024 12:04 PM [facility] Blood Venous blood specimen / Unknown Venipuncture / Unknown 06/16/2024 8:37 AM EDT 06/16/2024 8:37 AM EDT Awa Stack SLIDER ASSEMBLER LAB BLOOD ORDERABLES Fi nal Result [facility] [address] [place] [address], * (ABNORMAL) Basic metabolic panel (06/16/2024 8:37 AM EDT) Sodium 136 133 - 145 mmol/L LAB CHEMISTRY METHOD 06/16/2024 12:04 PM [facility] Potassium 4.8 3.5 - 5.5 mmol/L LAB CHEMISTRY METHOD 06/16/2024 12:04 PM [facility] Chloride 103 96 - 110 mmol/L LAB CHEMISTRY METHOD 06/16/2024 12:04 PM [facility] CO2 28 21 - 32 mmol/L LAB CHEMISTRY METHOD 06/16/2024 12:04 PM [facility] Anion Gap 5 3 - 11 LAB CHEMISTRY METHOD 06/16[facility]24 [facility] Glucose 125(H) 70 - 100 mg/dL LAB CHEMISTRY METHOD 06/16/2024 12:[facility] BUN 14 5 - 25 mg/dL LAB CHEMISTRY METHOD 06/16/2024 12:04 PM [facility] Creatinine 1.17 0.70 - 1.30 mg/dL LAB CHEMISTRY METHOD 06/16/2024 12:04 PM EDT [facility] eGFR 67 >=60 mL/min/1. 73m2 LAB CHEMISTRY METHOD 06/16/2024 12:04 PM T [facility] Comment:Calculation based on the Chronic Kidney Disease Epidemiology Collaboration (CKD-EPI) equation refit without adjustment for race. BUN/Creatinine Ratio 12.0 LAB CHEMISTRY METHOD 06/16/2024 12:04 PM [facility] Calcium 9.6 8.5 - 10.5 mg/dL LAB CHEMISTRY METHOD 06/16/2024 12:04 PM T [facility] Blood Venous blood specimen / Unknown Venipuncture / Unknown 06/16/2024 8:37 AM EDT 06/16/2024 8:37 AM EDT Awa Stack NP LAB BLOOD ORDERABLES Fi nal Result [facility] [address] [place] [address], from Last 3 Months Insurance [employer] Advance Directives Documents on File Type Date Recorded Patient Tar Leveler Expl anation Power of Construction Manager 07/02/2024 3:05 PM [facility] Care Teams Stamping Operator Relationship Specialty Start Date End Date Jason Mcfarlane FNP [address] [place] [address] PCP - General Family Medicine 05/06/24
== END 2024-09-09 09:39 | disposition home or self-care (01) ==
LOC: HO.HMCH 08:53
DX: M17.12 Unilateral primary osteoarthritis, left knee (principal); D64.9 Anemia, unspecified; F10.29 Alcohol dependence with unspecified alcohol-induced disorder; R73.01 Impaired fasting glucose; E78.00 Pure hypercholesterolemia, unspecified; I51.7 Cardiomegaly; Z01.818 Encounter for other preprocedural examination; I10 Essential (primary) hypertension

== ENCOUNTER → 2024-09-09 08:52 | Outpatient (BNVA) | payer MEDICARE, SELFPAY | DX: Z01.818 Encounter for other preprocedural examination (principal); M17.12 Unilateral primary osteoarthritis, left knee; I10 Essential (primary) hypertension; E78.00 Pure hypercholesterolemia, unspecified; D64.9 Anemia, unspecified; R73.01 Impaired fasting glucose; I51.7 Cardiomegaly; F10.29 Alcohol dependence with unspecified alcohol-induced disorder | CPT/HCPCS: 99212 ==

== ENCOUNTER 2024-09-12 07:00 | Outpatient (REF) | payer MEDICARE, SELFPAY ==
--- OUTSIDE RECORDS SUMMARY | 2024-09-12 07:02 | XMS_ITS | Patient Health Record ---
Author Organization [facility] Address [address] PRANAV Banerjee [address] Care Team Providers Care Liberal Arts And Humanities Chair Name Role Phone Estefania(inactive) Willy MCBRIDE Primary Care Provider U Hermilo Lezama Jr [phone] Reason For Referral No Information Problems Problem Type SNOMED Code ICD Code Onset Dates Problem Status W/U Status Risk Notes Problem [id number] Other specified pre-operative examination (Z01.818) Active confirmed Plan Of Treatment No Information Insurance Providers Payer Name Payer Address Payer Phone Subscriber Number Group Number Insured Name Patient Relationship to Insured Coverage Start Date Coverage End Date [facility] [address] [place] [address] [id number] DANIELA MICHAUD Self - patient is the insured Medical (General) History Medical History History ICD Code hypertension Denies [place],DM,CVA,Lung disease,renal dise ase
[2024-09-12 07:13] LABS: MANUAL DIFF FLAG NO
[2024-09-12 07:55] LABS: Hematocrit 40.7 % (42.0-52.0); Hemoglobin 14.4 g/dl (14.0-18.0); Imm Gran Abs Auto 0.02 X10*3/uL (0.00-0.03); Imm Gran Pct Auto 0.3 % (0.0-0.4); Lymphocytes Absolute Auto 1.8 X10*3/uL (1.2-4.9); Mean Corpuscular HGB Conc 35.4 g/dl (31.0-36.0); Mean Corpuscular Hemoglobin 32.7 pg (27.0-33.0); Mean Corpuscular Volume 92.5 fL (80.0-98.0); NRBC Abs Auto 0.000 X10*3/uL (0.0-0.012); NRBC Pct Auto 0.0 /100WBC (0.0-0.2); Platelet Count 181 X10*3/uL (160-400); Red Blood Count 4.40 X10*6/uL (4.60-5.80); White Blood Count 5.8 X10*3/uL (4.8-10.8)
[2024-09-12 08:57] LABS: Folate 10.2 ng/mL (> or = 4.0); Vitamin B12 393 pg/mL (200-900)
== END 2024-09-12 07:01 | disposition home or self-care (01) ==
LOC: HO.LAB 07:00
DX: D64.9 Anemia, unspecified (principal); F10.29 Alcohol dependence with unspecified alcohol-induced disorder
CPT/HCPCS: 36415; 82607; 82746; 85025

== ENCOUNTER 2024-11-10 09:14 | Outpatient (AMB) | payer MEDICARE, SELFPAY ==
--- OUTSIDE RECORDS SUMMARY | 2024-11-05 11:00 | XMS_ITS | Encounter Summary ---
Author Organization [facility] Address [address] [place] [address] Care Team Providers Care Trampoline Team Coach Name Role Phone Jason Mcfarlane Primary Care Provider [phone] Reason for Referral * Consultation (Routine) - Pending Review Specialty Diagnoses / Procedures Referred By Lupe araujo Referred To Contact Physical Therapy Diagnoses Status post total left knee replacement Matteo Trivedi MD [address] [address] Phone: tel: fax: Referral ID Status Reason Start Date Expiration Date Visits Requested Visits Authorized [id number] Pending Review Specialty Services Required 11/05/2024 11/05/2025 1 1 Scheduling Instructions SCHEDULED WITH [facility] [place] Reason for Visit * Reason Comments Follow-up 1 week f/u Left TKR 10/13/24 Encounter Details Date Type Department Care Team (Late st Contact Info) Description 11/05/2024 11:00 AM EDT Office Visit Orthopedic Surgery - [place] [address] [phone] Matteo Trivedi MD [address] [address] Status post total left knee replacement (Primary Dx) Social History Tobacco Use Types Packs/Day Years [...] AM EDT Sexual Orientation Not on file documented as of this encounter Progress Notes * Matteo Trivedi MD - 11/05/2024 11:00 AM EDT [facility] Date: 11/05/2024 Reason for visit: status post left TKR 10/13/2024 with partial MFC avulsion HPI: Dav Silva is a 69 y.o. year old male 3 weeks following left knee replacement with repaired partial MFC avulsion. I last saw him at the 1 week appointment where he is doing well. He was compliant using the brace and a walker for ambulation. Range of motion 10 to 40 degrees. I recommend that he continue weightbearing as tolerated in open brace 0 to 60 degrees. I recommended that he work on extension more than flexion. He is to continue aspirin twice daily with pantoprazole for DVT prophylaxis.Pain control through acetaminophen, vitamin C, low-dose celecoxib, weaning nighttime gabapentin, and as needed tramadol or oxycodone. I advised that he should not drive until next appointment. He comes in today with overall the knee is doing well. He is set up to start outpatient therapy at [facility] in with [place] tomorrow. He does admit to driving to the clinic appointment today. He is tolerating the aspirin for DVT prophylaxis, and taking the above pain medications however has not required narcotics since this past Sunday. He is weaned down to using cane with ambulation. Denies any fevers, chills, sweats, chest pain, shortness of breath. Exam: There were no vitals filed for this visit. Well-appearing male, no apparent distress, and oriented. On examination left knee he has minimal appropriate swelling about the knee. No tenderness about the medial femoral condyle, no overlying skin changes. Knee range of motion is 10 to 70 degrees with soft endpoints. Knee is stable to varus and valgus stress throughout range of motion. Stable to anterior and posterior drawer at 70 degrees. He is able to maintain straight leg raise with about a 10 degree lag. No calf tenderness. Distally neurovascular intact. 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 Right knee moderate-severe varus osteoarthritis, asymptomatic. Hypertension. Moderate alcohol use, no history of withdrawal. Poor dentition. BMI 26. Plan: I discussed my findings, and overall he is recovering well following left knee replacement with partial MFC avulsion. He continues to not have tenderness about the MFC, therefore I believe that this is healing well. We discussed that he should continue to use the brace which has been open 0 to 120 degrees for ambulating long distances outside, this is primarily to prevent buckling or significant varus/valgus stress on the knee. However he does not need to use the brace while in the home or sleeping. I did provide an updated physical therapy referral with goal range of motion 0 to 90 degrees at 6 weeks, and 0 to 120 degrees at 3 months. I advised very gentle progressive range of motion, and no strengthening until 8 weeks. He may now resume driving, advised he should not drive under the influence of narcotics. He should continue the aspirin and pantoprazole for DVT prophylaxis, along with his multimodal analgesia. He should follow-up in 3 weeks with repeat x-rays of the left knee. Matteo Trivedi MD [address] [place] [address], [address] [place] [address] W: [phone] F: [phone] Portions of this note were dictated utilizing the speech recognition software. Electronically Signed By: Matteo Trivedi MD 11/05/2024 11:26 AM EDT documented in this encounter Plan of Treatment Upcoming Encounters Date Type Department Care Team (Late st Contact Info) Description 11/26/2024 3:30 PM EDT Office Visit Orthopedic Surgery - [place] [address] [phone] Matteo Trivedi MD [address] [address] Scheduled Referrals Name Type Priority Associated Diagnoses Order Schedule Ambulatory referral to Physical Therapy and Athletic Training Outpatient Referral Routine Status post total left knee replacement 1 Occurrences starting 11/05/2024 until 11/05/2025 documented as of this encounter Visit Diagnoses Diagnosis Status post total left knee replacement- Primary documented in this encounter Discontinued Medications Medication Sig Discontinue Reason Start Date End Da te oxyCODONE (ROXICODONE) 5 mg immediate release tablet Take 1 tablet (5 mg total) by mouth every 4 (four) hours if needed for severe pain. Max Daily Amount: 30 mg 10/13/2024 11/05/2024 documented as of this encounter Care Teams Trampoline Team Coach Relationship Specialty Start Date End Date Jason Mcfarlane FNP [address] [place] [address] PCP - General Family Medicine 05/06/24 documented as of this encounter
[2024-11-10 09:17] VITALS: BP 140/68; PULSE 84; TEMP 36.1; O2SAT 99; BMI 25.0
--- NOTE | 2024-11-10 09:17 | MHC.PC.OV ---
Vital Signs 11/10/24 09:17 11/10/24 09:44 Height 6 ft 2 in Weight 194 lb 10.691 oz BMI 25.0 BP 140/68 H 122/68 Blood Pressure Location Lt brachial Lt brachial Position Sitting Sitting Pulse 84 Pulse Source Pulse Oximeter Temp 97.0 F Temp Source Temporal Artery Scan Pulse Oximetry (%) 99 Oxygen Delivery Method Room Air Intake Visit Reasons: htn/hld Allergies No Known Allergies (No Known Allergies*) Allergy (Verified 11/10/24 09:25) Medication List - Last Reconciled 11/10/24 by JOSELINE Minor atorvastatin 10 mg PO BEDTIME 90 days lisinopril 10 mg PO DAILY Tobacco use date assessed: 11/10/24 Fall risk assessment: No Falls in past year Last assessed Fall Risk: 11/10/24 Dental Screening Dental Screen Date: 11/10/24 Did you have a dental visit in the last 12 months?: Yes Did you have a dental problem in the last 6 months where you did not have access to dental care?: No Was dental information given to patient?: Patient has dentist HPI htn/hld HPI Details The patient is 69 year old male with significant past medical history of hld, HTN, alcohol dependence, anemia He recent had left knee surgery and his wearing brace today. Incision line mid-patella without sign of infection Reports that he started home PT and well be going to outpatient PT soon for 8 weeks, 2 times a week. HTN-repeat bp 122/78, per patient this has been good at home as well. Continue lisinopril 10 mg daily. Decrease caffeine and salt intake. HLD-continue atorvastatin 10 mg. ldl decreased significantly but triglycerides slightly elevated. Reinforced low-cholesterol, low sugar, decreased process foods and maintain adequate hydration Anemia-slightly anemic. Initially, a significant drop from the patient 1st CBC, however H&H stabilized on follow up labs. We will continue to monitor [facility] Medical History HTN (hypertension) Surgical History History of left knee replacement Hx of hernia repair Family History Mother Alzheimer dementia Father Heart attack Daughter No problems noted. Daughter No problems noted. Social History Housing: House Patient Tobacco Use Status: Never used Tobacco e-Cigarette/Vaping Use: Never Used Substance Use Type: Marijuana service: No Current occupational status: retired Current occupational exposures/hazards: No Cognitive needs: No Hearing needs: No Vision needs: No Questionnaire PHQ-9 Over the last 2 weeks, how often have you been bothered by any of the following problems? 1. Little interest or pleasure in doing things: not at all 2. Feeling down, depressed, or hopeless: not at all 3. Trouble falling or staying asleep, or sleeping too much: not at all 4. Feeling tired or having little energy: not at all 5. Poor appetite or overeating: not at all 6. Feeling bad about yourself - or that you are a failure or have let yourself or your family down: not at all 7. Trouble concentrating on things, such as reading the newspaper or watching television: not at all 8. Moving or speaking so slowly that other people could have noticed. Or the opposite - being so fidgety or restless that you have been moving around a lot more than usual: not at all 9. Thoughts that you would be better off or of hurting yourself in some way: not at all Total score: 0 Depression Screening Interpretation: Negative Depression Screening Done: Yes Source: Developed by Drs. Jose Abdul, Belle Bloom, Jah Francis and colleagues, with an educational carlos from [email or web address]. Thrive Questionnaire Date Thrive assessed: 04/16/24 I am a: Patient What is your living situation today?: I have a steady place to live Within the past 12 months, did the food you bought not last and you didn't have the money to get more?: Never true Within the past 12 months, did you worry whether your food would run out before you got money to buy more?: Never true Do you have trouble paying for medicines?: No Do you have trouble getting transportation to medical appointments?: No Do you have trouble paying your heating and electricity bill?: No Do you have trouble taking care of your child, family member or friend?: No Do you have trouble with day-to-day activities such as bathing, preparing meals, shopping, managing finances, etc.?: No Are you currently unemployed and looking for a job?: No Are you interested in more education?: No Please select the resources that you would like help with: None Currently or been in a relationship where the following occur: I choose not to answer THRIVE Score: 0 AUDIT C Alcohol Use Questionnaire (AUDIT-C) 1. How often do you have a drink containing alcohol?: 4 or more times a week 2. How many drinks containing alcohol do you have on a typical day when you are drinking?: 5 or 6 3. How often do you have six or more drinks on one occasion?: Weekly Total Score: 9 CORDELIA-7 AMB Questionnaire CORDELIA-7 Date CORDELIA - 7 assessed: 09/09/24 Feeling nervous, anxious, or on edge: 1 = Several days Not being able to stop or control worryin = Not at all Worrying too much about different things: 0 = Not at all Trouble relaxin = Not at all Being so restless that it is hard to sit still: 0 = Not at all Becoming easily annoyed or irritable: 0 = Not at all Feeling afraid as if something awful might happen: 0 = Not at all Total CORDELIA-7 score (0-4 normal; 5-9 mild; 10-14 moderate; 15-21 severe): 1 Source: Developed by Drs. Jose Abdul, Belle Bloom, Jah Francis and colleagues, with an educational carlos from [email or web address]. Review of Systems Const Denies body aches, Denies chills, Denies fever(s), Denies headache(s) and Denies poor appetite Eyes Reports no additional complaints ENT Denies dysphagia, Denies dizziness, Denies headache(s) and Denies odynophagia Card Denies chest pain, Denies syncope, Denies edema, Denies irregular heart rhythm, Denies lightheadedness and Denies dyspnea Resp Denies cough and Denies dyspnea GI Denies abdominal pain, Denies constipation, Denies dysphagia, Denies diarrhea, Denies nausea, Denies odynophagia and Denies vomiting Reports no additional complaints Musc Reports arthralgias (Left knee-status post surgery) and Reports joint swelling (Left knee status post surgery) Skin/Breast Reports system reviewed and no additional complaints, except as documented Neuro Denies dizziness, Denies syncope and Denies headache(s) Psych Reports no additional complaints Physical exam (Primary Care) Vital Signs: Last Vital Signs Temp 97.0 F 11/10/24 09:17 Pulse 84 11/10/24 09:17 BP 140/68 H 11/10/24 09:17 Pulse Ox 99 11/10/24 09:17 Oxygen Delivery Method Room Air 11/10/24 09:17 BMI result Body Mass Index 25.0 Tobacco/Smoking Status: Tobacco use Status Tobacco use date assessed 11/10/24 11/10/24 09:21 Patient Tobacco Use Status Never used Tobacco 11/10/24 09:21 e-Cigarette/Vaping Use Never Used 11/10/24 09:21 PHQ-9: PHQ-9 Score PHQ-9: Total score 0 11/10/24 09:23 Depression Screening Interpretation: Negative Thrive Assessment: Date of Thrive Assessment Date Thrive assessed 04/16/24 11/10/24 09:21 Currently or been in a relationship where the following occur: I choose not to answer Const General: cooperative, healthy appearing, comfortable and no acute distress Orientation/consciousness: patient oriented x3 HENMT Head: Yes normocephalic Ears: hearing grossly normal bilaterally General nose exam: Normal external nose present Eyes General: appearance normal, both eyes and all related structures Conjunctivae: conjunctivae normal Neck Neck: Yes full ROM and Yes no lymphadenopathy Resp Effort & Inspection: normal respiratory effort Auscultation: clear to auscultation bilaterally, no crackles, no rales, no rhonchi and no wheezes Cardio Rate: regular rate Rhythm: regular rhythm Heart sounds: S1 normal heart sound present and S2 normal heart sound present GI Palpation (GI): nontender and No hepatosplenomegaly present Auscultation: normal bowel sounds Skin General skin exam: no rashes or lesions noted Neuro General: patient oriented x3 Gait exam (Neuro): Normal gait present Extrem General: Yes normal to inspection, Yes full ROM and No edema Left lower extremity: knee (brace in place. Mild Edema, no erythema, incisional line no sx of infection) Psych Affect: normal affect Attitude: cooperative Insight: Good insight present (Psych) Judgement: Good judgement present (Psych) Coding Level of Care Code Est Pt Level 3 (29822) Diagnoses Arthritis of left knee M17.12 Anemia, unspecified type D64.9 Anemia type: unspecified type Abnormal fasting glucose R73.01 Pure hypercholesterolemia with target low density lipoprotein (LDL) cholesterol less than 130 mg/dL E78.00 Right atrial enlargement I51.7 Hypertension, unspecified type I10 Hypertension type: unspecified Alcohol dependence with unspecified alcohol-induced disorder F10.29 Substance use status: unspecified alcohol-induced disorder Time Spent (min) 35 Assessment & Plan Assessment & Plan (1) Arthritis of left knee: Code(s): M17.12 - Unilateral primary osteoarthritis, left knee Category: Medical Plan: S/p surgery on October 13-He is doing well overall. He is working on ROM and working on regaining complete function. Left Knee brace in place. Started PT and will be going for 8 weeks, 2/week. Follow up with surgeon as scheduled. (2) Anemia: Code(s): D64.9 - Anemia, unspecified Category: Medical Qualifiers: Anemia type: unspecified type Qualified Code(s): D64.9 - Anemia, unspecified Plan: The patient has labs done on 09/06/24 that shows a drop in H&H from 16.4/13.5 and 46.3/37.9 without any evidence of bleeding. The rest of the patient labs are normal. The patient CBC was repeated on 09/12/24 with noted improvement in H&H 14.4/40.7. signifying that the patient is not having any active bleed and his CBC is stable. We will continue to monitor (3) Abnormal fasting glucose: Code(s): R73.01 - Impaired fasting glucose Category: Medical Plan: Fasting glucose 118. A1c 5.6% on 09/06/2024 Reinforced low sugar/carbohydrate diet We will repeat fasting glucose and A1c in 3 months (4) Pure hypercholesterolemia with target low density lipoprotein (LDL) cholesterol less than 130 mg/dL: Code(s): E78.00 - Pure hypercholesterolemia, unspecified Category: Medical Plan: Triglycerides 196, total cholesterol 151, LDL 61, HDL 51 Reinforced low-cholesterol diet and activity as tolerated Continue atorvastatin 10 mg at bedtime We will repeat lipid panel in 3 months (5) Right atrial enlargement: Code(s): I51.7 - Cardiomegaly Category: Medical Plan: EKG done showed right atrial enlargement. Patient was evaluated by Cardiology, per patient, his product assembler explained that he has a small tear in the right atrial. Per patient, his product assembler is not worried about to surgery but he is more worried about rehabilitation after the procedure. The patient has an echo pending on 06/05/2024 showed LV EF 60-65% and a grade 1 diastolic dysfunction. Mildly dilated ascending aorta at 4.1 cm a normal right ventricle function. The patient was cleared by Cardiology to proceed with surgery. (6) HTN (hypertension): Code(s): I10 - Essential (primary) hypertension Category: Medical Qualifiers: Hypertension type: unspecified Qualified Code(s): I10 - Essential (primary) hypertension Plan: Patient blood pressure was 122/68 Reinforced low-salt diet Continue lisinopril 10 mg daily (7) Alcohol dependence: Code(s): F10.20 - Alcohol dependence, uncomplicated Category: Medical Qualifiers: Substance use status: unspecified alcohol-induced disorder Qualified Code(s): F10.29 - Alcohol dependence with unspecified alcohol-induced disorder Plan: Encouraged cessation or decreasing the number and frequency of use
[2024-11-10 09:44] VITALS: BP 122/68
--- OUTSIDE RECORDS SUMMARY | 2024-11-10 10:49 | XMS_ITS | Encounter Summary ---
Author Organization [facility] Address [address] [place] [address] Care Team Providers Care Manager Home Improvement Name Role Phone Jason Mcfarlane Primary Care Provider [phone] Encounter Details Date Type Department Care Team (Late st Contact Info) Description 10/24/2024 Telephone Orthopedic Surgery - [place] [address] [place] [address] Awa Stack NP [address] [place] [phone] Social History Tobacco Use Types Packs/Day Years [...] on file documented as of this encounter Ordered Prescriptions Prescription Sig Dispense Quantity Refills Last Filled Start Date End Date traMADoL (ULTRAM) 50 mg tabletIndications: Status post total left knee replacement Take 1 tablet (50 mg total) by mouth every 6 (six) hours if needed for moderate pain. Max Daily Amount: 200 mg 28 tablet 10/24/2024 documented in this encounter Progress Notes * Colten Reich - 10/24/2024 9:31 AM EDT Pt called & needs a refill on traMADoL (ULTRAM) 50 mg tablet [[id number]] asked if we can send it to [facility] in [place]. documented in this encounter Plan of Treatment Upcoming Encounters Date Type Department Care Team ([facility] st Contact Info) Description 11/26/2024 3:30 PM EDT Office Visit Orthopedic Surgery - [place] [id number] [phone] Matteo Trivedi MD [address] [id number] documented as of this encounter Visit Diagnoses Diagnosis Status post total left knee replacement- Primary documented in this encounter Discontinued Medications Medication Sig Discontinue Reason Start Date End Da te traMADoL (ULTRAM) 50 mg tablet Take 1 tablet (50 mg total) by mouth every 6 (six) hours if needed for moderate pain. Max Daily Amount: 200 mg Reorder 10/13/2024 10/24/2024 documented as of this encounter Care Teams Manager Home Improvement Relationship Specialty Start Date End Date Jason Mcfarlane FNP [address] [place] [address] PCP - General Family Medicine 05/06/24 documented as of this encounter
--- OUTSIDE RECORDS SUMMARY | 2024-11-10 10:50 | XMS_ITS | Clinical Summary ---
Author Organization [facility] Address [address] [place] [phone] Phone Care Team Providers Care Home Theater Installer Name Role Phone Denys Jason HENRY Primary Care Provider Allergies No known active allergies Medications lisinopriL (PRINIVIL,ZESTR IL) 10 mg tablet Take 1 tablet (10 mg total) by mouth 1 (one) time each day. 05/08/19 25 Active atorvastatin (LIPITOR) 10 mg tablet Take 1 tablet (10 mg total) by mouth. at bedtime. 05/08/19 25 Active acetaminophen (TYLENOL) 500 mg tablet Take 2 tablets (1,000 mg total) by mouth 3 (three) times a day. 90 tablet 10/14/19 25 Active aspirin 81 mg EC tablet Take 1 tablet (81 mg total) by mouth 2 (two) times a day. 84 tablet 10/14/19 25 025 Active celecoxib (CeleBREX) 100 mg capsule Take 1 capsule (100 mg total) by mouth 2 (two) times a day. 84 capsule 10/14/19 25 Active gabapentin (NEURONTIN) 100 mg capsule Take 1 capsule (100 mg total) by mouth 2 (two) times a day. 28 capsule 10/14/19 25 Active ondansetron (ZOFRAN) 8 mg tablet Take 1 tablet (8 mg total) by mouth every 8 (eight) hours if needed for nausea or vomiting. 20 tablet 10/14/19 25 Active pantoprazole (PROTONIX) 40 mg EC tablet Take 1 tablet (40 mg total) by mouth 1 (one) time each day before breakfast. Do not crush, chew, or split. 42 tablet 10/14/19 25 Active senna-docusate (PERICOLACE) 8.6-50 mg per tablet Take 2 tablets by mouth at bedtime. 60 tablet 10/14/19 Active ascorbic acid (VITAMIN C) 500 mg tablet Take 1 tablet (500 mg total) by mouth 2 (two) times a day. 84 tablet 10/14/19 Active traMADoL (ULTRAM) 50 mg tabletIndicatio ns:Status post total left knee replacement Take 1 tablet (50 mg total) by mouth every 6 (six) hours if needed for moderate pain. Max Daily Amount: 200 mg 28 tablet 10/25/19 Active erythromycin 5 mg/gram (0.5 %) ophthalmic ointment APPLY SMALL AMOUNT TO LEFT LOWER EYELID THREE TIMES A DAY 06/28/19 Discontinued(St op Taking at Discharge) cefadroxil 500 mg capsule Take 1 capsule (500 mg total) by mouth 2 (two) times a day. 14 capsule 10/14/19 025 Discontinued oxyCODONE (ROXICODONE) 5 mg immediate release tablet Take 1 tablet (5 mg total) by mouth every 4 (four) hours if needed for severe pain. Max Daily Amount: 30 mg 30 tablet 10/14/19 025 Discontinued saccharomyces boulardii (FLORASTOR) 250 mg capsule Take 1 capsule (250 mg total) by mouth 1 (one) time each day. 7 capsule 10/14/19 025 Discontinued traMADoL (ULTRAM) 50 mg tablet Take 1 tablet (50 mg total) by mouth every 6 (six) hours if needed for moderate pain. Max Daily Amount: 200 mg 30 tablet 10/14/19 25 025 Discontinued(Re order) Active Problems Problem Noted Date Diagnosed Date Status post total left knee replacement 10/23/19 Abnormal EKG 05/21/2024 Assessment & Plan (05/22/2024 9:15 AM EDT): Patient's EKG shows significant change consistent with right atrial enlargement. The patient has no previous cardiovascular history. I have no access available to any old EKGs for comparison. The patient denies pulmonary issues denies symptoms of sleep apnea denies peripheral edema denies palpitations. He has a echocardiogram scheduled at [facility] on 05 June we will get those [...] ECG 12 lead Alcohol dependence, uncompli cated (CMS/[facility] V24, CMS/HCC V28) 05/14/2024 Primary osteoarthritis of right knee 05/14/2024 Encounters Date Type Department Care Team Description 11/05/2024 11:00 AM EDT Office Visit Orthopedic Surgery - [place] [address] [facility] [address] [place] [phone] Matteo Trivedi MD Status post total left knee replacement (Primary Dx) 10/24/2024 Telephone Orthopedic Surgery [place] [address] [place] [phone] Awa Stack NP 10/22/2024 3:30 PM EDT Office Visit Orthopedic [place] [address] [phone] Matteo Trivedi MD Status post total left knee replacement (Primary Dx); Post-operative state 10/21/2024 Telephone Orthopedic Surgery [facility] [address] [phone] Christelle Buchanan RN 10/14/2024 Telephone Orthopedic [place] [address] [phone] Christelle Buchanan RN 10/13/2024 7:33 AM EDT Anesthesia Event [facility] [place] [address] [place] [phone] Blake Greene MD 10/13/2024 7:30 AM EDT - 10/13/2024 10:00 AM EDT Surgery [facility] [place] [address] [place] [phone] Matteo Trivedi MD LEFT TOTAL KNEE ARTHROPLASTY [15343 (CPT )] 10/13/2024 5:59 AM EDT - 10/13/2024 2:42 PM EDT Hospital Encounter [facility] [place] [address] [place] [phone] Matteo Trivedi MD Status post total knee replacement, left (Primary Dx); Unilateral primary osteoarthritis, left knee Discharge Disposition: Home-Health Care [facility] 10/08/2024 1:30 PM EDT Consult Orthopedic [facility] [address] [phone] Awa Stack NP Pre-op exam (Primary Dx); Unilateral primary osteoarthritis, left knee 10/07/2024 Telephone Orthopedic Surgery [facility] [address] [phone] Christelle Buchanan RN 09/29/2024 Telephone Orthopedic Surgery [facility] [address] [phone] Christelle Buchanan RN from Last 3 Months Surgical History [...] Sign Reading Time Taken Comments Blood Pressure 123/79 10/13/2024 11:41 AM EDT Pulse 61 10/13/2024 11:41 AM EDT Temperature 36.2 C (97.2 F) 10/13/2024 11:41 AM EDT Respiratory Rate 20 10/13/2024 11:41 AM EDT Oxygen Saturation 100% 10/13/2024 11:41 AM EDT Inhaled Oxygen Concentration - - Weight 84.8 kg (187 lb) 10/08/2024 1:16 PM EDT Height 190.5 cm (6' 3 ) 10/08/2024 1:16 PM EDT Body Mass Index 23.37 10/08/2024 1:16 PM EDT Plan of Treatment Upcoming Encounters Date Type Department Care Team (Late st Contact Info) Description 11/26/2024 3:30 PM EDT Office Visit Orthopedic [facility] [address] [phone] Matteo Trivedi MD [address] [phone] Health Maintenance Due Date Last Done Comments DTaP,Tdap,and Td Vaccines (1 - Tdap) 1973 Hepatitis A Vaccines (1 of 2 - Risk 2-dose series) 1973 Pneumococcal Vaccine: 50+ Ye ars (1 of 1 - PCV) 2004 Zoster Vaccines (1 of 2) 2004 Depression Screening 02/20/2024 Cholesterol Screening (Lipid Panel) 03/20/2024 Colorectal Cancer Screening: Colonoscopy 03/20/2024 Falls Risk Assessment 03/20/2024 Hepatitis C Screening 03/20/2024 Medicare Annual Wellness Visit 03/20/2024 Social Influencers of Health Screening 03/20/2024 COVID-19 Vaccine (1 - 2023-2 5 season) 2024 Influenza Vaccine (#1) 2024 Hypertension/CHF/CAD Annual BMP [...] on patient's age to complete this topic Medical Devices Implanted Type Area Plant Facilities Technician Device Identifier Shelf Expiration Date Model / Serial / Lot [place] Sut Healicoil 4.75mm - Snone - [id number] Implanted:Qty : 1 on 10/13/2024 by Matteo Trivedi MD at [facility] Arthroscopy Implants Sports Med Left: Knee MEDINA AND NEPHEW - ENDOSCOPY [id number] 07/06/2027 [id number] / NONE / [id number] Cement Bone Surg Simplex Radiopq - Sn/A - [id number] Implanted:Qty : 2 on 10/13/2024 by Matteo Trivedi MD at [facility] Bone Cement Left: Knee [employer] 06/18/2026 [id number] / N/A / [id number] Knee Psn Fem Ps Cmt Ccr Std Sz12 L - Sn/A - [id number] Implanted:Qty : 1 on 10/13/2024 by Matteo Trivedi MD at [facility] Joints Knee Left: Knee BILL INC [id number] 12/07/2033 [id number] / N/A / [id number] Knee Psn Tib Industrial Eng Stm 5 Deg Sz Gl - Sn/A - [id number] Implanted:Qty : 1 on 10/13/2024 by Matteo Trivedi MD at [facility] Joints Knee Left: Knee [employer]ILL INC [id number] 02/25/2034 [id number] / N/A / [id number] All Poly Patella 41mm - Sn/A - [id number] Implanted:Qty : 1 on 10/13/2024 by Matteo Trivedi MD at [facility] Joints Knee Left: Knee BILL INC [id number] 05/22/2028 [id number] / N/A / [id number] Stem Extension Tapered Cemented 01c75bd - Sn/A - [id number] Implanted:Qty : 1 on 10/13/2024 by Matteo Trivedi MD at [facility] Joints Knee Left: Knee BILL BIOMET [id number] 07/17/2034 [id number] 14 / N/A / [id number] Knee Cps Artcsurf 10mm Lt 10-12 Gh - Snone - [id number] Implanted:Qty : 1 on 10/13/2024 by Matteo Trivedi MD at [facility] Joints Knee Left: Knee BILL INC [id number] 03/25/2029 [id number] / NONE / [id number] Cristhian Femur/Cristhian Tibia/Cps Ve Art Surf/Ve Patella Implanted:Qty : 1 on 10/13/2024 by Matteo Trivedi MD at [facility] Left: Knee BILL BIOMET [id number] / N/A / N/A Procedures Procedure Name Priority Date/Time Associated Diagnosis Comments XR KNEE 3 VIEWS LEFT Routine 10/22/2024 3:20 PM EDT Post-operative state Status post total left knee replacement XR KNEE 1-2 VIEWS LEFT Routine 10/13/2024 11:00 AM EDT TISSUE EXAM Routine 10/13/2024 9:54 AM EDT Unilateral primary osteoarthritis, left knee ANESTHESIA SPINAL BLOCK Routine 10/13/2024 8:07 AM EDT KS ARTHROPLASTY KNEE CONDYLE&PLATEAU MED/LAT CPTS W/WO PATELLA RESURFACING 10/13/2024 7:31 AM EDT Unilateral primary osteoarthritis, left knee Case Notes BILL CEMENTED 11 PS FEMUR POCT GLUCOSE BLOOD Routine 10/13/2024 6: 16 AM EDT MRSA PCR Routine 10/08/2024 1:24 PM EDT Pre-op exam BASIC METABOLIC PANEL Routine 06/16/2024 8:37 AM EDT Preoperative clearance from Last 3 Months or Most Recently Relevant to Health Maintenance Results * XR Knee 3 Views Left (10/22/2024 3:20 PM EDT) Anatomical Region Laterality Modality Lower Extremities, Knee Left Computed Radiography Narrative 10/24/2024 10:07 AM EDT 3 views of the left knee obtained today including AP, lateral, sunrise were reviewed. These show left cemented posterior stabilized total knee replacement with patellar resurfacing and short cemented tibial stem. Implants appear well-fixed and well-positioned. 4 degree tibial varus. Patella is tracking centrally without tilt. Reduced femoral intramedullary air compared to immediate postoperative x-rays. No fracture or avulsions involving medial femoral condyle. Unchanged vascular calcifications. us Matteo Trivedi MD IMG XR PROCEDURES Fin al Result * XR Knee 1-2 Views Left (10/13/2024 11:00 AM EDT) Anatomical Region Laterality Modality Lower Extremities, Knee Left [facility]ogra [facility] 10/13/2024 11:0 3 AM EDT Impressions 10/13/2024 11:03 AM EDT Satisfactory appearance immediately following total left knee replacement surgery. Code 84321 -------- FINAL REPORT -------- Dictated By: Axel Pritchard Dictated Date: 10/13/2024 11:03 ET Assigned Physician: Axel Pritchard Reviewed and Electronically Signed By: Axel Pritchard Signed Date: 10/13/2024 11:03 ET Workstation ID: [id number] Transcribed By: Self Edit Transcribed Date: 10/13/2024 11:03 ET Narrative 10/13/2024 11:03 AM EDT HISTORY: The patient is a 69-year-old male who has just undergone left knee replacement surgery. FINDINGS: AP and lateral radiographs of the left knee obtained in the postanesthesia care unit demonstrate that the patient has undergone total left knee replacement surgery. There is good relationship of the prosthetic elements to each other and to the surrounding bony structures. Soft tissue lucencies are consistent with immediate postoperative status. Overlying skin mane are present. Extensive atherosclerotic arterial calcification is noted. Procedure Note Axel Pritchard MD - 10/13/2024 HISTORY: The patient is a 69-year-old male who has just undergone leftknee replacement surgery. FINDINGS: AP and lateral radiographs of the left knee obtained in thepostanesthesia care unit demonstrate that the patient has undergone totalleft knee replacement surgery. There is good relationship of theprosthetic elements to each other and to the surrounding bony structures.Soft tissue lucencies are consistent with immediate postoperative status.Overlying skin mane are present. Extensive atherosclerotic arterialcalcification is noted. IMPRESSION: Satisfactory appearance immediately following total left knee replacementsurgery. Code 41453 -------- FINAL REPORT -------- Dictated By: Axel Pritchard Dictated Date: 10/13/2024 11:03 ET Assigned Physician: Axel Pritchard Reviewed and Electronically Signed By: Axel Pritchard Signed Date: 10/13/2024 11:03 ET Workstation ID: [id number] Transcribed By: Self Edit Transcribed Date: 10/13/2024 11:03 ET us Awa Stack [employer] SALES ENGINEER IMG XR PROCEDURES Final Result * Tissue exam (10/13/2024 9:54 AM EDT) Final Diagnosis A. Knee, Left, knee arthroplasty: - Bone, cartilage, and synovium with changes compatible with osteoarthritis. 10/15/2024 1:09 PM EDT [facility] Gross Description A. Knee, Left, : Labeled knee L . Received in formalin is a 11 x 8 x 5 cm aggregate of pink synovium, yellow adipose tissue, rubbery cartilage, and hard, cabrera-yellow bone. The articular surfaces are granular and cabrera-pink to eburnated. The trabecular bone is pink-yellow and unremarkable. The articular surfaces are inked black. Positive Printer Operator sections are submitted in one cassette following decalcification, four pieces. YOUSUF 10/15/2024 1:09 PM EDT [facility] Disclaimer Unless otherwise specified, all tissue is 10% NB formalin fixed and paraffin embedded. 10/15/2024 1:09 PM EDT [facility] Bone Structure of left knee region / Unknown 10/13/2024 9:54 AM EDT 10/13/2024 11:46 AM EDT us Matteo Trivedi MD LAB PATHOLOGY ORDERAB LES Final Result [facility] [address] [place] [address], * Spinal Block (10/13/2024 8:07 AM EDT) Narrative Esperanza Soto CRNA - 10/13/2024 8:07 AM EDT Esperanza Soto CRNA 10/13/2024 8:09 AM Spinal Block Patient location during procedure: OR Reason for block: primary anesthetic and at surgeon's request Staffing Performed: resident/LOGISTICS ADMINISTRATOR and anesthesiologist Anesthesiologist: Francesco Bowens MD Resident/LOGISTICS ADMINISTRATOR: Esperanza Soto CRNA Performed by: Esperanza Soto CRNA Authorized by: Francesco Bowens MD Preanesthetic Checklist Completed: patient identified, IV checked, risks and benefits discussed, surgical consent, monitors and equipment checked, pre-op evaluation and timeout performed Spinal Block Patient position: sitting Prep: ChloraPrep and site prepped and draped Patient monitoring: continuous pulse ox Approach: midline Location: L3-4 Injection technique: single-shot Needle Needle type: Pencan Needle gauge: 25 G Needle length: 3.5 in Additional Notes + clear CSF obtained at L3-4. No heme noted. 1.5 ml 0.5% PF bupivacaine injected intrathecally: +CSF aspiration after injection. Tolerated procedure well without complication. Francesco Bowens MD ANESTHESIA ORDERABLES Final Re sult * POCT Glucose, blood (10/13/2024 6:16 AM EDT) [facility] Glucose POCT 82 70 - 100 mg/dL 10/13/2024 6:17 AM EDT [facility] Blood Capillary blood specimen / Unknown 10/13/2024 6:16 AM EDT 10/13/2024 6:18 AM EDT Matteo Trivedi MD LAB POINT OF CARE TEST DOCKED DEVICE UNSOLICITED RESULTS Final Result [facility] [address] [place] [address], [place] [phone] * MRSA molecular study (10/08/2024 1:24 PM EDT) [facility] MRSA Screen PCR Not Detected Not Detected LAB MICROBIOLOGY METHOD 10/08/2024 7:57 PM EDT [facility] Swab Both anterior nares / Unknown Non-blood Collection / Unknown 10/08/2024 1:24 PM EDT 10/08/2024 1:24 PM EDT Awa Stack NP LAB MICROBIOLOGY - GENE RAL ORDERABLES Final Result [facility] [address] [place] [address], [place] [phone] * (ABNORMAL) Basic metabolic panel (06/16/2024 8:37 AM EDT) Sodium 136 133 - 145 mmol/L LAB CHEMISTRY METHOD 06/16/2024 12:04 PM [facility] Potassium 4.8 3.5 - 5.5 mmol/L LAB CHEMISTRY METHOD 06/16/2024 12:04 PM [facility] Chloride 103 96 - 110 mmol/L LAB CHEMISTRY METHOD 06/16/2024 12:04 PM [facility] CO2 28 21 - 32 mmol/L LAB CHEMISTRY METHOD 06/16/2024 12:04 PM [facility] Anion Gap 5 3 - 11 LAB CHEMISTRY METHOD 06/16/2024 12:04 PM [facility] Glucose 125(H) 70 - 100 mg/dL LAB CHEMISTRY METHOD 06/16/2024 12:04 PM [facility] BUN 14 5 - 25 mg/dL LAB CHEMISTRY METHOD 06/16/2024 12:04 PM [facility] Creatinine 1.17 0.70 - 1.30 mg/dL LAB CHEMISTRY METHOD 06/16/2024 12:04 PM [facility] eGFR 67 >=60 mL/min/1. 73m2 LAB CHEMISTRY METHOD 06/16/2024 12:04 PM [facility] Comment:Calculation based on the Chronic Kidney Disease Epidemiology Collaboration (CKD-EPI) equation refit without adjustment for race. BUN/Creatinine Ratio 12.0 LAB CHEMISTRY METHOD 06/16/2024 12:04 PM [facility] Calcium 9.6 8.5 - 10.5 mg/dL LAB CHEMISTRY METHOD 06/16/2024 12:04 PM EDT [facility] Blood Venous blood specimen / Unknown Venipuncture / Unknown 06/16/2024 8:37 AM EDT 06/16/2024 8:37 AM EDT us Awa Stack [employer] SALES ENGINEER LAB BLOOD ORDERABLES Fi nal Result [facility] [address] [place] [address], from Last 3 Months or Most Recently Relevant to Health Maintenance Insurance [employer] MEDICARE ADVANTAGE Advance Directives Documents on File Type Date Recorded Patient Positive Printer Operator Expl anation Power of Clothes Ironer 07/02/2024 3:05 PM HEALT H CARE PROXY * Full Code - Default (Latest Code Status on File) Date Activated Date Inactivated Comments 10/13/2024 6:16 AM 10/13/2024 4:48 PM This is orde r is used when code status has not been discussed with the patient, or code status is otherwise unknown/unconfirmed To update the patient's code status, place a code status order. Do not modify or discontinue any currently active code status orders. Care Teams Home Theater Installer Relationship Specialty Start Date End Date Jason Mcfarlane FNP [address] [place] [address] PCP - General Family Medicine 05/06/24
--- OUTSIDE RECORDS SUMMARY | 2024-11-10 10:50 | XMS_ITS | Patient Health Record ---
Author Organization [facility] Address [address] PRANAV Banerjee [phone] Care Team Providers Care Rvda Master Certified Rv Technician Name Role Phone Estefania(inactive) Willy MCBRIDE Primary Care Provider U Hermilo Lezama Jr Reason For Referral No Information Problems Problem Type SNOMED Code ICD Code Onset Dates Problem Status W/U Status Risk Notes Problem [id number] Other specified pre-operative examination (Z01.818) Active confirmed Plan Of Treatment No Information Insurance Providers Payer Name Payer Address Payer Phone Subscriber Number Group Number Insured Name Patient Relationship to Insured Coverage Start Date Coverage End Date [facility] [address] [place] [phone] [id number] DANIELA MICHAUD Self - patient is the insured Medical (General) History Medical History History ICD Code hypertension Denies RI,DM,CVA,Lung disease,renal dise ase
== END 2024-11-10 09:54 | disposition home or self-care (01) ==
LOC: HO.HMCH 09:15
DX: M17.12 Unilateral primary osteoarthritis, left knee (principal); F10.29 Alcohol dependence with unspecified alcohol-induced disorder; D64.9 Anemia, unspecified; R73.01 Impaired fasting glucose; E78.00 Pure hypercholesterolemia, unspecified; I51.7 Cardiomegaly; I10 Essential (primary) hypertension

== ENCOUNTER → 2024-11-10 09:14 | Outpatient (BNVA) | payer MEDICARE, SELFPAY | DX: I10 Essential (primary) hypertension (principal); E78.5 Hyperlipidemia, unspecified; D64.9 Anemia, unspecified; M17.12 Unilateral primary osteoarthritis, left knee; R73.01 Impaired fasting glucose; E78.00 Pure hypercholesterolemia, unspecified; I51.7 Cardiomegaly; F10.29 Alcohol dependence with unspecified alcohol-induced disorder | CPT/HCPCS: 96127; 99212 ==